=== PATIENT | female | born 1960 | race Asian ===

== ENCOUNTER 2020-04-06 17:32 | Inpatient (IN) | payer MEDICAID, OTHER ==
[~2020-04-06] VITALS: Ht 152.4 cm; Wt 66.8 kg
[2020-04-06] MEDS ORDERED: ONDANSETRON 2MG/ML, 2ML IVPush ONE (18:00)
[2020-04-06] MEDS ORDERED: SODIUM CHLORIDE 0.9% 1,000ML IVBOLUS ONE ×2 (18:00→20:00)
[2020-04-06 18:03] LABS: PH, VENOUS 7.372 pH (7.320-7.420)
[2020-04-06 18:07] LABS: BASOPHILS # (AUTO) 0.02 x10^3/uL (0-0.1); BASOPHILS % (AUTO) 0 % (0-1); EOSINOPHILS % (AUTO) 0 % (1-7); LYMPHOCYTES # (AUTO) 1.24 x10^3/uL (1-3.4); LYMPHOCYTES % (AUTO) 17 % (22-44); MD NO; MEAN CORPUSCULAR HEMOGLOBIN 28.3 pg (27.0-34.8); MEAN CORPUSCULAR HGB CONC 33.6 g/dL (32.4-35.8); MEAN CORPUSCULAR VOLUME 84.2 fL (80-100); MEAN PLATELET VOLUME 9.8 fL (7.4-10.4); MONOCYTES # (AUTO) 0.17 x10^3/uL (0.2-0.8); MONOCYTES % (AUTO) 2 % (2-9); NEUTROPHILS # (AUTO) 6.07 x10^3/uL (1.8-6.8); NEUTROPHILS % (AUTO) 81 % (42-75); PLATELET COUNT 133 x10^3/uL (130-400); RED BLOOD COUNT 5.58 x10^6/uL (3.82-5.3); RED CELL DISTRIBUTION WIDTH 13.1 % (9.6-15.2)
[2020-04-06 18:17] LABS: ALANINE AMINOTRANSFERASE 50 U/L (12-78); ALBUMIN 3.1 g/dL (3.4-5.0); ANION GAP 8 mmol/L (5-15); CALCIUM 8.5 mg/dL (8.5-10.1); CHLORIDE 89 mmol/L (98-107); CREATININE 1.18 mg/dL (0.55-1.02)
[2020-04-06 18:19] LABS: ALKALINE PHOSPHATASE 90 U/L (45-117); BILIRUBIN,TOTAL 0.8 mg/dL (0.2-1.0); TOTAL PROTEIN 8.4 g/dL (6.4-8.2)
[2020-04-06 18:20] LABS: ACETONE, SERUM Moderate(40mg/dL) (Negative)
[2020-04-06] MEDS ORDERED: SODIUM CHLORIDE FLUSH 10ML SYR IVF ONE (18:30)
--- NOTE | 2020-04-06 18:31 | NUR ---
MEDICAL FRONT DESK SPECIALIST: PT TO ROOM VIA WHEELCHAIR FROM JOSE JUAN
--- NOTE | 2020-04-06 18:48 | NUR ---
first contact with pt. Pt has not eaten in a few days and her blood glucose per daughter-law keeps going up. NAusea and vomitting since yesterday. pt's aox4. resps even and unlabored. pt is from [facility] and pt's daughter can translate. pt's daughter at bedside. bp/spo2 monitors in place. call light within reach.
--- NOTE | 2020-04-06 18:54 | NUR ---
RECEIVED BEDSIDE REPORT FROM MIGDALIA LI. PT LAYING IN BED, RESPIRATIONS EVEN AND UNLABORED. DAUGHTER AT BEDSIDE TO TRANSLATE, CONFIRMED WITH PT THAT SHE DOES NOT WANT TO USE TRANSLATION SERVICES. PT ABLE TO TRANSFER SELF TO BEDSIDE COMMODE FOR CLEAN CATCH URINE SAMPLE.
--- NOTE | 2020-04-06 18:55 | NUR ---
report given to rudy irizarry.
[2020-04-06 19:27] LABS: MICROSCOPIC AUTO
--- NOTE | 2020-04-06 20:05 | NUR ---
PT LAYING IN BED, POSITIONED TO COMFORT, EYES CLOSED, RESPIRATIONS EVEN AND UNLABORED. NO SIGNS OF DISTRESS. DAUGHTER REMAINS AT BEDSIDE.
--- NOTE | 2020-04-06 22:17 | NUR ---
PT STATES NO MEDS, INCLUDING NO INSULIN.
--- NOTE | 2020-04-06 22:30 | NUR ---
REPORT GIVEN TO CARMEN ROMERO RN.
[2020-04-06 23:02] VITALS: BP 153/76
[2020-04-06] MEDS: SODIUM CHLORIDE 0.9% 1,000 ML IV SCH (23:35)
[2020-04-06] MEDS: metFORMIN 500 MG TABLET PO SCH (23:35)
[2020-04-07 00:16] VITALS: BP 112/64
[2020-04-07 01:38] VITALS: BP 125/75
[2020-04-07 06:22] LABS: BASOPHILS # (AUTO) 0.01 x10^3/uL (0-0.1); BASOPHILS % (AUTO) 0 % (0-1); EOSINOPHILS # (AUTO) 0.01 x10^3/uL (0-0.4); EOSINOPHILS % (AUTO) 0 % (1-7); LYMPHOCYTES # (AUTO) 1.18 x10^3/uL (1-3.4); LYMPHOCYTES % (AUTO) 24 % (22-44); MD NO; MEAN CORPUSCULAR HEMOGLOBIN 28.3 pg (27.0-34.8); MEAN CORPUSCULAR HGB CONC 33.5 g/dL (32.4-35.8); MEAN CORPUSCULAR VOLUME 84.4 fL (80-100); MEAN PLATELET VOLUME 10.1 fL (7.4-10.4); MONOCYTES # (AUTO) 0.32 x10^3/uL (0.2-0.8); MONOCYTES % (AUTO) 6 % (2-9); NEUTROPHILS % (AUTO) 70 % (42-75); PLATELET COUNT 129 x10^3/uL (130-400); RED BLOOD COUNT 5.11 x10^6/uL (3.82-5.3); RED CELL DISTRIBUTION WIDTH 13.2 % (9.6-15.2)
[2020-04-07 06:30] LABS: ANION GAP 9 mmol/L (5-15); CALCIUM 7.9 mg/dL (8.5-10.1); CHLORIDE 101 mmol/L (98-107)
[2020-04-07 06:41] LABS: CREATININE 0.85 mg/dL (0.55-1.02)
[2020-04-07] MEDS: SODIUM CHLORIDE 0.9% 1,000 ML IV SCH ×3 (07:30→23:49)
[2020-04-07] MEDS: metFORMIN 500 MG TABLET PO SCH ×2 (07:43→16:53)
[2020-04-07] MEDS: INSULIN LISPRO 100 UNITS/ML, PEN SQ-INSULIN SCH ×4 (07:44→20:04)
[2020-04-07 07:58] VITALS: BP 134/70
[2020-04-07 08:21] LABS: ESTIMATED AVERAGE GLUCOSE 355 mg/dL (0-126)
[2020-04-07] MEDS: LINAGLIPTIN 5 MG TAB PO SCH (09:55)
[2020-04-07 12:55] VITALS: BP 113/64
[2020-04-07 19:18] VITALS: BP 118/66
[2020-04-07] MEDS: ONDANSETRON 2MG/ML, 2ML IVPush PRN (20:04)
[2020-04-07] MEDS: INSULIN GLARGINE 100 UNITS/ML, PEN SQ-INSULIN SCH (21:51)
[2020-04-08 01:47] VITALS: BP 110/62
[2020-04-08] MEDS: INSULIN LISPRO 100 UNITS/ML, PEN SQ-INSULIN SCH ×4 (07:00→21:00)
[2020-04-08] MEDS: SODIUM CHLORIDE 0.9% 1,000 ML IV SCH ×3 (07:09→22:41)
[2020-04-08] MEDS: metFORMIN 500 MG TABLET PO SCH ×2 (07:27→17:33)
[2020-04-08] MEDS: LINAGLIPTIN 5 MG TAB PO SCH (07:27)
[2020-04-08 07:36] VITALS: BP 112/51
[2020-04-08 11:11] LABS: MICROSCOPIC AUTO
[2020-04-08 14:00] VITALS: BP 117/66
[2020-04-08 14:00] LABS: HCT (SEDRATE) 40.6 % (34.6-47.8)
[2020-04-08 14:02] LABS: BASOPHILS # (AUTO) 0.03 x10^3/uL (0-0.1); BASOPHILS % (AUTO) 0 % (0-1); EOSINOPHILS # (AUTO) 0.03 x10^3/uL (0-0.4); EOSINOPHILS % (AUTO) 0 % (1-7); LYMPHOCYTES % (AUTO) 33 % (22-44); MD NO; MEAN CORPUSCULAR HEMOGLOBIN 28.6 pg (27.0-34.8); MEAN CORPUSCULAR HGB CONC 34.1 g/dL (32.4-35.8); MEAN CORPUSCULAR VOLUME 83.9 fL (80-100); MEAN PLATELET VOLUME 9.7 fL (7.4-10.4); MONOCYTES # (AUTO) 0.33 x10^3/uL (0.2-0.8); MONOCYTES % (AUTO) 4 % (2-9); NEUTROPHILS # (AUTO) 4.79 x10^3/uL (1.8-6.8); NEUTROPHILS % (AUTO) 62 % (42-75); PLATELET COUNT 148 x10^3/uL (130-400); RED BLOOD COUNT 4.77 x10^6/uL (3.82-5.3); RED CELL DISTRIBUTION WIDTH 13.4 % (9.6-15.2)
[2020-04-08 14:10] LABS: ALBUMIN 2.4 g/dL (3.4-5.0); ANION GAP 7 mmol/L (5-15); CALCIUM 8.2 mg/dL (8.5-10.1); CHLORIDE 102 mmol/L (98-107); CREATININE 0.85 mg/dL (0.55-1.02)
[2020-04-08 14:13] LABS: ALANINE AMINOTRANSFERASE 40 U/L (12-78); ALKALINE PHOSPHATASE 78 U/L (45-117); BILIRUBIN,TOTAL 0.6 mg/dL (0.2-1.0); TOTAL PROTEIN 7.2 g/dL (6.4-8.2)
[2020-04-08 20:21] VITALS: BP 132/71
[2020-04-08] MEDS: INSULIN GLARGINE 100 UNITS/ML, PEN SQ-INSULIN SCH (22:32)
[2020-04-09 02:18] VITALS: BP 115/56
[2020-04-09] MEDS: SODIUM CHLORIDE 0.9% 1,000 ML IV SCH ×2 (06:12→18:28)
[2020-04-09] MEDS: INSULIN LISPRO 100 UNITS/ML, PEN SQ-INSULIN SCH ×4 (06:12→20:22)
[2020-04-09] MEDS: metFORMIN 500 MG TABLET PO SCH (08:15)
[2020-04-09] MEDS: LINAGLIPTIN 5 MG TAB PO SCH (08:15)
[2020-04-09 08:28] VITALS: BP 119/65
[2020-04-09 13:55] VITALS: BP 135/59
[2020-04-09] MEDS ORDERED: metFORMIN 500 MG TABLET PO SCH (17:00)
[2020-04-09 19:24] VITALS: BP 111/66
[2020-04-09] MEDS: ONDANSETRON 2MG/ML, 2ML IVPush PRN (20:45)
[2020-04-09] MEDS ORDERED: INSULIN GLARGINE 100 UNITS/ML, PEN SQ-INSULIN SCH (21:00)
[2020-04-10 00:55] VITALS: BP 118/60
[2020-04-10] MEDS: SODIUM CHLORIDE 0.9% 1,000 ML IV SCH ×2 (01:45→09:33)
[2020-04-10 07:23] VITALS: BP 136/75
[2020-04-10] MEDS: INSULIN LISPRO 100 UNITS/ML, PEN SQ-INSULIN SCH ×4 (07:37→20:38)
[2020-04-10 08:07] LABS: ANION GAP 7 mmol/L (5-15); CALCIUM 7.8 mg/dL (8.5-10.1); CHLORIDE 104 mmol/L (98-107); CREATININE 0.76 mg/dL (0.55-1.02)
[2020-04-10 08:11] VITALS: BP 133/65
[2020-04-10] MEDS ORDERED: AMPICILLIN/SULBACTAM 3 GM in SODIUM CHLORIDE 0.9% 100 ML IV SCH (10:00)
[2020-04-10 10:33] VITALS: BP 121/65
[2020-04-10] MEDS: ACETAMINOPHEN 650 MG SUPP PR PRN ×2 (10:37→20:27)
[2020-04-10 10:47] LABS: ALANINE AMINOTRANSFERASE 45 U/L (12-78); ALBUMIN 1.9 g/dL (3.4-5.0); ANION GAP 9 mmol/L (5-15); CHLORIDE 101 mmol/L (98-107); CREATININE 0.86 mg/dL (0.55-1.02)
[2020-04-10 10:52] LABS: ALKALINE PHOSPHATASE 101 U/L (45-117); BILIRUBIN,TOTAL 0.5 mg/dL (0.2-1.0); TOTAL PROTEIN 6.7 g/dL (6.4-8.2); TROPONIN I 0.016 ng/mL (0.000-0.045)
[2020-04-10 10:55] LABS: BASOPHILS # (AUTO) 0.03 x10^3/uL (0-0.1); BASOPHILS % (AUTO) 0 % (0-1); EOSINOPHILS % (AUTO) 0 % (1-7); LYMPHOCYTES # (AUTO) 0.87 x10^3/uL (1-3.4); LYMPHOCYTES % (AUTO) 12 % (22-44); MD SCAN; MEAN CORPUSCULAR HEMOGLOBIN 28.6 pg (27.0-34.8); MEAN CORPUSCULAR HGB CONC 34.2 g/dL (32.4-35.8); MEAN CORPUSCULAR VOLUME 83.7 fL (80-100); MEAN PLATELET VOLUME 9.2 fL (7.4-10.4); MONOCYTES # (AUTO) 0.28 x10^3/uL (0.2-0.8); MONOCYTES % (AUTO) 4 % (2-9); NEUTROPHILS # (AUTO) 6.27 x10^3/uL (1.8-6.8); NEUTROPHILS % (AUTO) 84 % (42-75); PLATELET COUNT 192 x10^3/uL (130-400); RED BLOOD COUNT 4.54 x10^6/uL (3.82-5.3); RED CELL DISTRIBUTION WIDTH 13.1 % (9.6-15.2)
[2020-04-10] MEDS ORDERED: PROPOFOL 10 MG/ML, 20ML ONE (11:12)
[2020-04-10] MEDS ORDERED: ETOMIDATE 20 MG/10 ML ONE (11:12)
[2020-04-10] MEDS ORDERED: PROPOFOL 10 MG/ML, 100ML IV ONE (11:12)
[2020-04-10] MEDS ORDERED: SUCCINYLCHOLINE 20 MG/ML, 10ML ONE (11:12)
[2020-04-10] MEDS ORDERED: MIDAZOLAM 1 MG/ML, 5ML ONE (11:12)
[2020-04-10 12:37] VITALS: BP 110/61
[2020-04-10] MEDS ORDERED: POTASSIUM CHLORIDE 40 MEQ in SODIUM CHLORIDE 0.9% 500 ML IV ONE (13:30)
[2020-04-10] MEDS ORDERED: FUROSEMIDE 40 MG/4 ML IV ONE (13:30)
[2020-04-10 13:48] LABS: TROPONIN I 0.028 ng/mL (0.000-0.045)
[2020-04-10] MEDS ORDERED: ENOXAPARIN 30 MG/0.3 ML SQ SCH (15:00)
[2020-04-10] MEDS ORDERED: REMDESIVIR 200 MG in SODIUM CHLORIDE 0.9% 250 ML IVPB ONE (15:30)
[2020-04-10] MEDS ORDERED: KETOROLAC 30 MG/1 ML IM PRN (17:00)
[2020-04-10] MEDS: ASCORBIC ACID 500 MG TABLET PO SCH ×2 (17:42→20:27)
[2020-04-10] MEDS: methylPREDNISolone SOD SUCC 40 MG/ML IV SCH (17:48)
[2020-04-10] MEDS: ENOXAPARIN 30 MG/0.3 ML SQ SCH (17:48)
[2020-04-10] MEDS ORDERED: MIDAZOLAM 1 MG/ML, 2ML IVPush ONE (18:00)
[2020-04-10] MEDS ORDERED: PROPOFOL 100 ML IV ONE (18:47)
[2020-04-10] MEDS ORDERED: LINEZOLID PMX 600MG/300ML 300 ML IV SCH (19:00)
[2020-04-10] MEDS: AMPICILLIN/SULBACTAM 3 GM in SODIUM CHLORIDE 0.9% 100 ML IV SCH (19:51)
[2020-04-10] MEDS: AZITHROMYCIN 500 MG in SODIUM CHLORIDE 0.9% 250 ML IV SCH (20:27)
[2020-04-10] MEDS: MELATONIN 5 MG TABLET PO SCH (20:27)
[2020-04-10] MEDS ORDERED: PIPERACILLIN/TAZO/PMX 3.375GM 50 ML IV SCH (21:00)
[2020-04-10] MEDS: TOCILIZUMAB 600 MG in SODIUM CHLORIDE 0.9% 70 ML IVPB SCH (21:56)
[2020-04-11] MEDS: ACETAMINOPHEN 650 MG SUPP PR PRN (00:28)
[2020-04-11] MEDS: AMPICILLIN/SULBACTAM 3 GM in SODIUM CHLORIDE 0.9% 100 ML IV SCH ×3 (02:09→17:43)
[2020-04-11] MEDS ORDERED: SODIUM CHLORIDE 0.9%, 500ML IVBOLUS ONE (02:30)
[2020-04-11] MEDS: methylPREDNISolone SOD SUCC 40 MG/ML IV SCH ×2 (03:09→16:38)
[2020-04-11] MEDS: PROPOFOL 100 ML IV PRN ×3 (03:10→20:03)
[2020-04-11] MEDS: INSULIN LISPRO 100 UNITS/ML, PEN SQ-INSULIN SCH ×6 (03:10→21:17)
[2020-04-11 05:44] LABS: BASOPHILS # (AUTO) 0.02 x10^3/uL (0-0.1); BASOPHILS % (AUTO) 0 % (0-1); EOSINOPHILS % (AUTO) 0 % (1-7); LYMPHOCYTES # (AUTO) 0.69 x10^3/uL (1-3.4); LYMPHOCYTES % (AUTO) 11 % (22-44); MD NO; MEAN CORPUSCULAR HEMOGLOBIN 28.2 pg (27.0-34.8); MEAN CORPUSCULAR HGB CONC 33.4 g/dL (32.4-35.8); MEAN CORPUSCULAR VOLUME 84.5 fL (80-100); MEAN PLATELET VOLUME 9.4 fL (7.4-10.4); MONOCYTES # (AUTO) 0.05 x10^3/uL (0.2-0.8); MONOCYTES % (AUTO) 1 % (2-9); NEUTROPHILS # (AUTO) 5.49 x10^3/uL (1.8-6.8); NEUTROPHILS % (AUTO) 88 % (42-75); PLATELET COUNT 186 x10^3/uL (130-400); RED BLOOD COUNT 4.33 x10^6/uL (3.82-5.3); RED CELL DISTRIBUTION WIDTH 13.2 % (9.6-15.2)
[2020-04-11 05:50] LABS: INTERNATIONAL NORMALIZED RATIO 1.09 (0.93-1.1); PROTHROMBIN TIME 11.6 Seconds (9.6-11.5)
[2020-04-11 05:52] LABS: ALANINE AMINOTRANSFERASE 49 U/L (12-78); ALBUMIN 1.5 g/dL (3.4-5.0); ANION GAP 10 mmol/L (5-15); CALCIUM 7.1 mg/dL (8.5-10.1); CHLORIDE 105 mmol/L (98-107); CREATININE 1.57 mg/dL (0.55-1.02)
[2020-04-11 05:57] LABS: ALKALINE PHOSPHATASE 92 U/L (45-117); TOTAL PROTEIN 6.1 g/dL (6.4-8.2); TROPONIN I 0.019 ng/mL (0.000-0.045)
[2020-04-11] MEDS ORDERED: MAGNESIUM SULFATE PMX 2GM/50ML 50 ML IV ONE ×2 (06:30→07:00)
[2020-04-11] MEDS ORDERED: ALBUMIN HUMAN 25% 100 ML IV ONE ×2 (07:00)
[2020-04-11] MEDS ORDERED: LACTATED RINGERS 1,000 ML IVBOLUS ONE (08:00)
[2020-04-11] MEDS ORDERED: CHOLECALCIFEROL 5,000u TAB PO SCH (09:00)
[2020-04-11] MEDS ORDERED: AZITHROMYCIN 500 MG TABLET PO SCH (09:00)
[2020-04-11] MEDS: ENOXAPARIN 30 MG/0.3 ML SQ SCH (09:14)
[2020-04-11] MEDS: ZINC SULFATE 220 MG CAPSULE PO SCH (09:15)
[2020-04-11] MEDS: ASCORBIC ACID 500 MG TABLET PO SCH ×3 (09:15→20:04)
[2020-04-11] MEDS: MIDODRINE 5 MG TABLET PO SCH ×3 (09:15→20:03)
[2020-04-11] MEDS: INSULIN GLARGINE 100 UNITS/ML, PEN SQ-INSULIN SCH ×2 (09:27→21:18)
[2020-04-11] MEDS: TOCILIZUMAB 600 MG in SODIUM CHLORIDE 0.9% 70 ML IVPB SCH (10:04)
[2020-04-11 10:25] LABS: ANION GAP 9 mmol/L (5-15); CALCIUM 7.7 mg/dL (8.5-10.1); CHLORIDE 106 mmol/L (98-107); CREATININE 1.69 mg/dL (0.55-1.02)
--- NOTE | 2020-04-11 10:55 | NUR ---
TF Recommendations: promote ON propofol: 65 ml/hr OFF propofol: 70 ml/hr
[2020-04-11 13:40] LABS: MICROSCOPIC INDICATED
[2020-04-11] MEDS ORDERED: PROPOFOL 100 ML IV PRN (14:48)
[2020-04-11] MEDS ORDERED: NOREPINEPHRINE 8 MG in SODIUM CHLORIDE 0.9% 242 ML IV PRN (14:48)
[2020-04-11] MEDS ORDERED: LIDOCAINE-MPF 1%, 2ML ENDO PRN (15:00)
[2020-04-11] MEDS ORDERED: SENNA 176 MG/5 ML ORAL SOL NG PRN (15:00)
[2020-04-11] MEDS ORDERED: DEXTROSE 4 GM TAB.CHEW PO PRN (15:00)
[2020-04-11] MEDS ORDERED: FENTANYL PF 100 MCG/2ML IVPush PRN (15:00)
[2020-04-11] MEDS ORDERED: GLUCAGON 1 MG IM PRN (15:00)
[2020-04-11] MEDS ORDERED: PHARMACY MAY ADJ FOR RENAL FX MC SCH (15:00)
[2020-04-11] MEDS ORDERED: DEXTROSE 50%, 50ML SYRINGE IVPush PRN (15:00)
[2020-04-11] MEDS ORDERED: REMDESIVIR 100 MG in SODIUM CHLORIDE 0.9% 250 ML IVPB SCH ×2 (15:30→19:30)
[2020-04-11] MEDS: AZITHROMYCIN 500 MG in SODIUM CHLORIDE 0.9% 250 ML IV SCH (17:43)
[2020-04-11] MEDS: SODIUM CHLORIDE FLUSH 10ML SYR IVF SCH (20:04)
[2020-04-11] MEDS: MELATONIN 5 MG TABLET PO SCH (20:04)
[2020-04-11] MEDS ORDERED: ENOXAPARIN 60 MG/0.6 ML SQ SCH (21:00)
[2020-04-11] MEDS ORDERED: AMPICILLIN/SULBACTAM 3 GM in SODIUM CHLORIDE 0.9% 100 ML IV SCH (22:00)
[2020-04-12] MEDS ORDERED: PROPOFOL 10 MG/ML, 100ML IV ONE
[2020-04-12] MEDS ORDERED: ETOMIDATE 40 MG/20 ML ONE
[2020-04-12] MEDS ORDERED: SUCCINYLCHOLINE 20 MG/ML, 10ML ONE
[2020-04-12] MEDS ORDERED: MIDAZOLAM 1 MG/ML, 5ML ONE
[2020-04-12] MEDS: FENTANYL PF 100 MCG/2ML IVPush PRN ×4 (00:18→22:14)
[2020-04-12] MEDS: PROPOFOL 100 ML IV PRN ×4 (00:43→21:15)
[2020-04-12] MEDS: methylPREDNISolone SOD SUCC 40 MG/ML IV SCH ×2 (03:17→17:24)
[2020-04-12] MEDS: AMPICILLIN/SULBACTAM 3 GM in SODIUM CHLORIDE 0.9% 100 ML IV SCH ×3 (03:17→17:25)
[2020-04-12] MEDS: INSULIN LISPRO 100 UNITS/ML, PEN SQ-INSULIN SCH ×9 (03:18→21:01)
[2020-04-12 05:21] LABS: BASOPHILS % (AUTO) 0 % (0-1); EOSINOPHILS % (AUTO) 0 % (1-7); LYMPHOCYTES # (AUTO) 0.75 x10^3/uL (1-3.4); LYMPHOCYTES % (AUTO) 10 % (22-44); MD NO; MEAN CORPUSCULAR HEMOGLOBIN 28.2 pg (27.0-34.8); MEAN CORPUSCULAR HGB CONC 32.8 g/dL (32.4-35.8); MEAN CORPUSCULAR VOLUME 85.8 fL (80-100); MEAN PLATELET VOLUME 9.7 fL (7.4-10.4); MONOCYTES # (AUTO) 0.02 x10^3/uL (0.2-0.8); MONOCYTES % (AUTO) 0 % (2-9); NEUTROPHILS # (AUTO) 6.63 x10^3/uL (1.8-6.8); NEUTROPHILS % (AUTO) 90 % (42-75); PLATELET COUNT 258 x10^3/uL (130-400); RED BLOOD COUNT 4.03 x10^6/uL (3.82-5.3); RED CELL DISTRIBUTION WIDTH 13.7 % (9.6-15.2)
[2020-04-12 05:23] LABS: INTERNATIONAL NORMALIZED RATIO 1.07 (0.93-1.1); PROTHROMBIN TIME 11.4 Seconds (9.6-11.5)
[2020-04-12 05:29] LABS: CHLORIDE 108 mmol/L (98-107)
[2020-04-12] MEDS ORDERED: FUROSEMIDE 40 MG/4 ML IV ONE (05:30)
[2020-04-12 05:35] LABS: ALANINE AMINOTRANSFERASE 50 U/L (12-78); ALBUMIN 2.3 g/dL (3.4-5.0); ALKALINE PHOSPHATASE 90 U/L (45-117); ANION GAP 8 mmol/L (5-15); BILIRUBIN,TOTAL 0.6 mg/dL (0.2-1.0); CREATININE 1.61 mg/dL (0.55-1.02); TOTAL PROTEIN 6.5 g/dL (6.4-8.2)
[2020-04-12] MEDS: CHOLECALCIFEROL 1,000 UNIT TABLET PO SCH (08:33)
[2020-04-12] MEDS: SODIUM CHLORIDE FLUSH 10ML SYR IVF SCH ×2 (08:33→21:00)
[2020-04-12] MEDS: ASCORBIC ACID 500 MG TABLET PO SCH ×3 (08:34→20:59)
[2020-04-12] MEDS: MIDODRINE 5 MG TABLET PO SCH ×2 (08:34→17:25)
[2020-04-12] MEDS: ENOXAPARIN 60 MG/0.6 ML SQ SCH (08:34)
[2020-04-12] MEDS: ZINC SULFATE 220 MG CAPSULE PO SCH (08:34)
[2020-04-12 08:43] LABS: ANION GAP 8 mmol/L (5-15); CHLORIDE 107 mmol/L (98-107); CREATININE 1.68 mg/dL (0.55-1.02)
[2020-04-12] MEDS: INSULIN GLARGINE 100 UNITS/ML, PEN SQ-INSULIN SCH ×2 (08:56→21:00)
[2020-04-12] MEDS: FAMOTIDINE 20 MG/2 ML IVPush SCH (11:24)
[2020-04-12] MEDS ORDERED: INSULIN LISPRO 100 UNITS/ML, PEN SQ-INSULIN SCH (15:00)
[2020-04-12] MEDS: MELATONIN 5 MG TABLET PO SCH (20:59)
[2020-04-12] MEDS: MIDAZOLAM 1 MG/ML, 2ML IV PRN ×2 (21:01→22:14)
[2020-04-12] MEDS: REMDESIVIR 100 MG in SODIUM CHLORIDE 0.9% 250 ML IVPB SCH (21:02)
[2020-04-12] MEDS: AZITHROMYCIN 500 MG in SODIUM CHLORIDE 0.9% 250 ML IV SCH (22:14)
[2020-04-12] MEDS: MIDAZOLAM HCL 50 MG in SODIUM CHLORIDE 0.9% 40 ML IV PRN (23:49)
[2020-04-13] MEDS: MIDODRINE 5 MG TABLET PO SCH ×3 (01:41→16:04)
[2020-04-13] MEDS: AMPICILLIN/SULBACTAM 3 GM in SODIUM CHLORIDE 0.9% 100 ML IV SCH ×3 (01:42→18:07)
[2020-04-13] MEDS: PROPOFOL 100 ML IV PRN ×2 (02:49→07:50)
[2020-04-13] MEDS: MIDAZOLAM HCL 50 MG in SODIUM CHLORIDE 0.9% 40 ML IV PRN ×3 (02:49→18:07)
[2020-04-13] MEDS: methylPREDNISolone SOD SUCC 40 MG/ML IV SCH ×2 (03:30→16:04)
[2020-04-13] MEDS: INSULIN LISPRO 100 UNITS/ML, PEN SQ-INSULIN SCH ×8 (03:30→21:04)
[2020-04-13 03:58] LABS: ALANINE AMINOTRANSFERASE 46 U/L (12-78); ALBUMIN 2.1 g/dL (3.4-5.0); ANION GAP 5 mmol/L (5-15); BASOPHILS # (AUTO) 0.02 x10^3/uL (0-0.1); BASOPHILS % (AUTO) 0 % (0-1); CALCIUM 8.1 mg/dL (8.5-10.1); CHLORIDE 108 mmol/L (98-107); CREATININE 1.69 mg/dL (0.55-1.02); EOSINOPHILS # (AUTO) 0.05 x10^3/uL (0-0.4); EOSINOPHILS % (AUTO) 1 % (1-7); LYMPHOCYTES # (AUTO) 0.39 x10^3/uL (1-3.4); LYMPHOCYTES % (AUTO) 4 % (22-44); MD NO; MEAN CORPUSCULAR HEMOGLOBIN 28.4 pg (27.0-34.8); MEAN CORPUSCULAR HGB CONC 33.3 g/dL (32.4-35.8); MEAN CORPUSCULAR VOLUME 85.4 fL (80-100); MEAN PLATELET VOLUME 9.7 fL (7.4-10.4); MONOCYTES # (AUTO) 0.28 x10^3/uL (0.2-0.8); MONOCYTES % (AUTO) 3 % (2-9); NEUTROPHILS # (AUTO) 9.64 x10^3/uL (1.8-6.8); NEUTROPHILS % (AUTO) 93 % (42-75); PLATELET COUNT 344 x10^3/uL (130-400); RED BLOOD COUNT 4.23 x10^6/uL (3.82-5.3); RED CELL DISTRIBUTION WIDTH 14.2 % (9.6-15.2)
[2020-04-13 04:05] LABS: ALKALINE PHOSPHATASE 94 U/L (45-117); BILIRUBIN,TOTAL 0.4 mg/dL (0.2-1.0); TOTAL PROTEIN 6.5 g/dL (6.4-8.2)
[2020-04-13] MEDS: CHOLECALCIFEROL 1,000 UNIT TABLET PO SCH (07:50)
[2020-04-13] MEDS: ZINC SULFATE 220 MG CAPSULE PO SCH (07:50)
[2020-04-13] MEDS: SODIUM CHLORIDE FLUSH 10ML SYR IVF SCH ×2 (07:50→21:01)
[2020-04-13] MEDS: ASCORBIC ACID 500 MG TABLET PO SCH ×2 (07:50→16:04)
[2020-04-13] MEDS: FAMOTIDINE 20 MG/2 ML IVPush SCH (07:50)
[2020-04-13] MEDS: ENOXAPARIN 60 MG/0.6 ML SQ SCH (07:51)
[2020-04-13 08:49] LABS: ANION GAP 7 mmol/L (5-15); CALCIUM 8.5 mg/dL (8.5-10.1); CHLORIDE 108 mmol/L (98-107)
[2020-04-13] MEDS ORDERED: INSULIN GLARGINE 100 UNITS/ML, PEN SQ-INSULIN SCH ×3 (09:00→21:00)
[2020-04-13] MEDS: VECURONIUM 50 MG in SODIUM CHLORIDE 0.9% 50 ML IV PRN ×2 (10:01→18:24)
[2020-04-13] MEDS: ALBUTEROL/IPRATROPIUM 2.5MG/0.5MG, 3 ML INLINE SCH ×6 (12:20→23:00)
[2020-04-13] MEDS ORDERED: ALBUTEROL/IPRATROPIUM 2.5MG/0.5MG, 3 ML ONE (12:34)
[2020-04-13] MEDS ORDERED: FUROSEMIDE 20 MG/2 ML IV ONE (13:00)
[2020-04-13 14:41] VITALS: BP 105/46
[2020-04-13 14:56] VITALS: BP 106/46
[2020-04-13 15:02] VITALS: BP 105/46
[2020-04-13] MEDS ORDERED: SODIUM BICARB 8.4%, 50ML SYRINGE ONE (15:25)
[2020-04-13] MEDS ORDERED: SODIUM BICARBONATE 1 MEQ/ML, 50ML VIAL IVPush ONE (15:30)
[2020-04-13 15:36] VITALS: BP 114/49
[2020-04-13] MEDS ORDERED: SODIUM BICARB 8.4%, 50ML SYRINGE IVPush ONE (16:00)
[2020-04-13 16:36] VITALS: BP 120/52
[2020-04-13] MEDS: MELATONIN 5 MG TABLET PO SCH (20:17)
[2020-04-13] MEDS: REMDESIVIR 100 MG in SODIUM CHLORIDE 0.9% 250 ML IVPB SCH (20:32)
[2020-04-13] MEDS: ARTIFICIAL TEARS OINT 3.5 GM EACHEYE SCH (21:01)
[2020-04-13] MEDS: SODIUM CHLORIDE 0.9% IVPB SCH (23:04)
[2020-04-13] MEDS: ASCORBATE SODIUM IVPB SCH (23:04)
[2020-04-14] MEDS: AZITHROMYCIN 500 MG in SODIUM CHLORIDE 0.9% 250 ML IV SCH (00:36)
[2020-04-14] MEDS: MIDODRINE 5 MG TABLET PO SCH ×2 (00:36→08:55)
[2020-04-14] MEDS: PROPOFOL 100 ML IV PRN (00:36)
[2020-04-14] MEDS: ALBUTEROL/IPRATROPIUM 2.5MG/0.5MG, 3 ML INLINE SCH ×10 (01:00→22:30)
[2020-04-14] MEDS: ARTIFICIAL TEARS OINT 3.5 GM EACHEYE SCH ×4 (03:07→20:06)
[2020-04-14] MEDS: AMPICILLIN/SULBACTAM 3 GM in SODIUM CHLORIDE 0.9% 100 ML IV SCH ×3 (03:07→17:09)
[2020-04-14 03:55] LABS: ALANINE AMINOTRANSFERASE 41 U/L (12-78); ANION GAP 8 mmol/L (5-15); CALCIUM 7.7 mg/dL (8.5-10.1); CHLORIDE 112 mmol/L (98-107); CREATININE 1.66 mg/dL (0.55-1.02); TRIGLYCERIDES 401 mg/dL (50-200)
[2020-04-14 04:03] LABS: ALKALINE PHOSPHATASE 84 U/L (45-117); BILIRUBIN,TOTAL 0.4 mg/dL (0.2-1.0); TOTAL PROTEIN 5.8 g/dL (6.4-8.2)
[2020-04-14 04:07] LABS: BASOPHILS # (AUTO) 0.06 x10^3/uL (0-0.1); BASOPHILS % (AUTO) 1 % (0-1); EOSINOPHILS % (AUTO) 0 % (1-7); LYMPHOCYTES # (AUTO) 0.54 x10^3/uL (1-3.4); LYMPHOCYTES % (AUTO) 7 % (22-44); MD SCAN; MEAN CORPUSCULAR HEMOGLOBIN 27.7 pg (27.0-34.8); MEAN CORPUSCULAR HGB CONC 31.7 g/dL (32.4-35.8); MEAN CORPUSCULAR VOLUME 87.3 fL (80-100); MEAN PLATELET VOLUME 8.7 fL (7.4-10.4); MONOCYTES # (AUTO) 0.57 x10^3/uL (0.2-0.8); MONOCYTES % (AUTO) 7 % (2-9); NEUTROPHILS # (AUTO) 6.95 x10^3/uL (1.8-6.8); NEUTROPHILS % (AUTO) 86 % (42-75); PLATELET COUNT 297 x10^3/uL (130-400); RED BLOOD COUNT 4.31 x10^6/uL (3.82-5.3); RED CELL DISTRIBUTION WIDTH 14.3 % (9.6-15.2)
[2020-04-14] MEDS: methylPREDNISolone SOD SUCC 40 MG/ML IV SCH ×2 (04:35→17:09)
[2020-04-14] MEDS: INSULIN LISPRO 100 UNITS/ML, PEN SQ-INSULIN SCH ×5 (04:36→20:10)
[2020-04-14] MEDS: ASCORBATE SODIUM IVPB SCH ×3 (06:03→20:06)
[2020-04-14] MEDS: SODIUM CHLORIDE 0.9% IVPB SCH ×3 (06:03→20:06)
[2020-04-14] MEDS ORDERED: POTASSIUM CHLORIDE 20 MEQ in SODIUM CHLORIDE 0.9% 250 ML IV ONE (06:30)
[2020-04-14] MEDS: CHOLECALCIFEROL 1,000 UNIT TABLET PO SCH (08:55)
[2020-04-14] MEDS: ENOXAPARIN 60 MG/0.6 ML SQ SCH (08:55)
[2020-04-14] MEDS: ZINC SULFATE 220 MG CAPSULE PO SCH (08:55)
[2020-04-14] MEDS: FAMOTIDINE 20 MG/2 ML IVPush SCH (08:55)
[2020-04-14] MEDS: SODIUM CHLORIDE FLUSH 10ML SYR IVF SCH ×2 (08:57→20:06)
[2020-04-14 10:00] LABS: ANION GAP 6 mmol/L (5-15); CALCIUM 8.4 mg/dL (8.5-10.1); CHLORIDE 112 mmol/L (98-107)
[2020-04-14] MEDS: MIDAZOLAM HCL 50 MG in SODIUM CHLORIDE 0.9% 40 ML IV PRN ×3 (10:20→23:59)
[2020-04-14] MEDS: FENTANYL PF 1,000 MCG in SODIUM CHLORIDE 0.9% 80 ML IV PRN ×2 (11:00→21:44)
[2020-04-14 16:23] LABS: ANION GAP 5 mmol/L (5-15); CALCIUM 8.1 mg/dL (8.5-10.1); CHLORIDE 113 mmol/L (98-107); CREATININE 1.52 mg/dL (0.55-1.02)
[2020-04-14] MEDS ORDERED: FUROSEMIDE 20 MG/2 ML IV ONE (19:30)
[2020-04-14] MEDS: REMDESIVIR 100 MG in SODIUM CHLORIDE 0.9% 250 ML IVPB SCH (21:44)
[2020-04-15] MEDS: AZITHROMYCIN 500 MG in SODIUM CHLORIDE 0.9% 250 ML IV SCH (00:03)
[2020-04-15] MEDS: ARTIFICIAL TEARS OINT 3.5 GM EACHEYE SCH ×2 (02:04→08:00)
[2020-04-15] MEDS: AMPICILLIN/SULBACTAM 3 GM in SODIUM CHLORIDE 0.9% 100 ML IV SCH ×3 (02:05→17:28)
[2020-04-15] MEDS: ALBUTEROL/IPRATROPIUM 2.5MG/0.5MG, 3 ML INLINE SCH ×6 (02:35→22:45)
[2020-04-15] MEDS: SODIUM CHLORIDE 0.9% IVPB SCH ×3 (04:18→22:07)
[2020-04-15] MEDS: methylPREDNISolone SOD SUCC 40 MG/ML IV SCH ×2 (04:18→17:25)
[2020-04-15] MEDS: ASCORBATE SODIUM IVPB SCH ×3 (04:18→22:07)
[2020-04-15] MEDS: MIDAZOLAM HCL 50 MG in SODIUM CHLORIDE 0.9% 40 ML IV PRN ×3 (04:19→22:08)
[2020-04-15] MEDS: INSULIN LISPRO 100 UNITS/ML, PEN SQ-INSULIN SCH ×7 (04:22→22:13)
[2020-04-15 04:41] LABS: MEAN CORPUSCULAR HEMOGLOBIN 27.9 pg (27.0-34.8); MEAN CORPUSCULAR HGB CONC 32.3 g/dL (32.4-35.8); MEAN CORPUSCULAR VOLUME 86.3 fL (80-100); MEAN PLATELET VOLUME 8.6 fL (7.4-10.4); PLATELET COUNT 297 x10^3/uL (130-400); RED CELL DISTRIBUTION WIDTH 13.9 % (9.6-15.2)
[2020-04-15 04:45] LABS: ANION GAP 7 mmol/L (5-15); CALCIUM 7.9 mg/dL (8.5-10.1); CHLORIDE 112 mmol/L (98-107); CREATININE 1.49 mg/dL (0.55-1.02)
[2020-04-15 05:44] LABS: MD YES
[2020-04-15 05:46] LABS: LYMPH#(MANUAL) 0.58 x10^3/uL (1-3.4); LYMPHS% (MANUAL) 11 % (22-44); MONOS#(MANUAL) 0.05 x10^3/uL (0.3-2.7); MONOS% (MANUAL) 1 % (2-9); NRBC % (MANUAL) 1 % (0-1); POLYCHROMASIA 1+; SEG#(MANUAL) 4.66 x10^3/uL (1.8-6.8); SEGS% (MANUAL) 88 % (42-75)
[2020-04-15 05:47] LABS: <PLATELET ESTIMATE> ADEQUATE; <PLT MORPHOLOGY> NORMAL PLT MORPH
[2020-04-15] MEDS ORDERED: DEXTROSE 5% 1,000 ML IV SCH (07:00)
[2020-04-15] MEDS: FAMOTIDINE 20 MG/2 ML IVPush SCH (08:30)
[2020-04-15] MEDS: SODIUM CHLORIDE FLUSH 10ML SYR IVF SCH ×2 (08:30→22:06)
[2020-04-15] MEDS: ENOXAPARIN 60 MG/0.6 ML SQ SCH ×2 (08:30→22:08)
[2020-04-15] MEDS ORDERED: INSULIN GLARGINE 100 UNITS/ML, PEN SQ-INSULIN SCH (09:00)
[2020-04-15] MEDS: INSULIN GLARGINE 100 UNITS/ML, PEN SQ-INSULIN SCH ×2 (09:00→22:11)
[2020-04-15 10:00] LABS: CHLORIDE 113 mmol/L (98-107)
[2020-04-15 10:07] LABS: ANION GAP 7 mmol/L (5-15); CREATININE 1.54 mg/dL (0.55-1.02)
[2020-04-15] MEDS: CHOLECALCIFEROL 1,000 UNIT TABLET PO SCH (11:00)
[2020-04-15] MEDS: ZINC SULFATE 220 MG CAPSULE PO SCH (11:00)
--- NOTE | 2020-04-15 11:51 | NUR ---
04/15-TF GOAL: w/ propofol: Promote @ 50ml/hr off propofol: Promote @ 55ml/hr
[2020-04-15] MEDS ORDERED: FUROSEMIDE 40 MG/4 ML IV ONE (15:30)
[2020-04-15] MEDS ORDERED: REMDESIVIR 100 MG in SODIUM CHLORIDE 0.9% 250 ML IVPB SCH (21:00)
[2020-04-15] MEDS: MELATONIN 5 MG TABLET PO SCH (22:07)
[2020-04-15] MEDS: FENTANYL PF 1,000 MCG in SODIUM CHLORIDE 0.9% 80 ML IV PRN (22:09)
[2020-04-16] MEDS: AMPICILLIN/SULBACTAM 3 GM in SODIUM CHLORIDE 0.9% 100 ML IV SCH ×3 (02:05→16:37)
[2020-04-16] MEDS: AZITHROMYCIN 500 MG in SODIUM CHLORIDE 0.9% 250 ML IV SCH (02:05)
[2020-04-16] MEDS: ALBUTEROL/IPRATROPIUM 2.5MG/0.5MG, 3 ML INLINE SCH ×6 (02:30→22:50)
[2020-04-16] MEDS: MIDAZOLAM HCL 50 MG in SODIUM CHLORIDE 0.9% 40 ML IV PRN ×3 (04:46→23:26)
[2020-04-16] MEDS: ASCORBATE SODIUM IVPB SCH ×3 (04:46→20:51)
[2020-04-16] MEDS: SODIUM CHLORIDE 0.9% IVPB SCH ×3 (04:46→20:51)
[2020-04-16 04:57] LABS: MEAN CORPUSCULAR HEMOGLOBIN 27.8 pg (27.0-34.8); MEAN CORPUSCULAR HGB CONC 31.8 g/dL (32.4-35.8); MEAN CORPUSCULAR VOLUME 87.3 fL (80-100); MEAN PLATELET VOLUME 8.4 fL (7.4-10.4); PLATELET COUNT 281 x10^3/uL (130-400); RED BLOOD COUNT 4.24 x10^6/uL (3.82-5.3)
[2020-04-16 05:07] LABS: ANION GAP 5 mmol/L (5-15); CHLORIDE 112 mmol/L (98-107)
[2020-04-16 05:14] LABS: CREATININE 1.28 mg/dL (0.55-1.02)
[2020-04-16] MEDS: methylPREDNISolone SOD SUCC 40 MG/ML IV SCH ×2 (05:27→16:36)
[2020-04-16] MEDS: INSULIN LISPRO 100 UNITS/ML, PEN SQ-INSULIN SCH ×8 (05:28→22:23)
[2020-04-16 05:49] LABS: MD YES
[2020-04-16 05:51] LABS: LYMPH#(MANUAL) 0.26 x10^3/uL (1-3.4); LYMPHS% (MANUAL) 5 % (22-44); METAMYELOCYTES# (MANUAL) 0.05 x10^3/uL (0-0); METAMYELOCYTES% (MANUAL) 1 % (0-1); MONOS#(MANUAL) 0.05 x10^3/uL (0.3-2.7); MONOS% (MANUAL) 1 % (2-9); MYELOCYTES# (MANUAL) 0.05 x10^3/uL (0-0); MYELOCYTES% (MANUAL) 1 % (0-0); NRBC % (MANUAL) 3 % (0-1); POLYCHROMASIA 1+; SEG#(MANUAL) 4.78 x10^3/uL (1.8-6.8); SEGS% (MANUAL) 92 % (42-75)
[2020-04-16 05:52] LABS: <PLATELET ESTIMATE> ADEQUATE; <PLT MORPHOLOGY> NORMAL PLT MORPH
[2020-04-16] MEDS ORDERED: POTASSIUM CHLORIDE 10% 20 MEQ/15 ML UDC PO ONE (07:00)
[2020-04-16] MEDS ORDERED: DEXTROSE 50%, 50ML SYRINGE IVPush ONE (08:00)
[2020-04-16] MEDS ORDERED: INSULIN REGULAR 100 UNITS/ML, 3ML VIAL IVPush ONE (08:00)
[2020-04-16] MEDS: CHOLECALCIFEROL 1,000 UNIT TABLET PO SCH (08:38)
[2020-04-16] MEDS: ZINC SULFATE 220 MG CAPSULE PO SCH (08:38)
[2020-04-16] MEDS: FAMOTIDINE 20 MG/2 ML IVPush SCH (08:39)
[2020-04-16] MEDS: SODIUM CHLORIDE FLUSH 10ML SYR IVF SCH ×2 (08:39→20:51)
[2020-04-16] MEDS: ENOXAPARIN 60 MG/0.6 ML SQ SCH ×2 (08:39→20:52)
[2020-04-16] MEDS: INSULIN GLARGINE 100 UNITS/ML, PEN SQ-INSULIN SCH ×2 (08:39→20:55)
[2020-04-16] MEDS: FENTANYL PF 1,000 MCG in SODIUM CHLORIDE 0.9% 80 ML IV PRN (11:17)
[2020-04-16] MEDS: MELATONIN 5 MG TABLET PO SCH (20:52)
[2020-04-17] MEDS: AZITHROMYCIN 500 MG in SODIUM CHLORIDE 0.9% 250 ML IV SCH (00:59)
[2020-04-17] MEDS: FENTANYL PF 1,000 MCG in SODIUM CHLORIDE 0.9% 80 ML IV PRN ×2 (01:57→12:15)
[2020-04-17] MEDS: AMPICILLIN/SULBACTAM 3 GM in SODIUM CHLORIDE 0.9% 100 ML IV SCH ×3 (01:57→17:52)
[2020-04-17] MEDS: ALBUTEROL/IPRATROPIUM 2.5MG/0.5MG, 3 ML INLINE SCH ×6 (02:42→22:25)
[2020-04-17] MEDS: ASCORBATE SODIUM IVPB SCH ×3 (04:44→22:09)
[2020-04-17] MEDS: SODIUM CHLORIDE 0.9% IVPB SCH ×3 (04:44→22:09)
[2020-04-17] MEDS: methylPREDNISolone SOD SUCC 40 MG/ML IV SCH ×2 (04:44→17:53)
[2020-04-17] MEDS: INSULIN LISPRO 100 UNITS/ML, PEN SQ-INSULIN SCH ×8 (05:04→22:13)
[2020-04-17] MEDS: MIDAZOLAM HCL 50 MG in SODIUM CHLORIDE 0.9% 40 ML IV PRN ×3 (05:06→23:03)
[2020-04-17 06:58] LABS: ANION GAP 5 mmol/L (5-15); CALCIUM 8.2 mg/dL (8.5-10.1); CHLORIDE 114 mmol/L (98-107); CREATININE 1.06 mg/dL (0.55-1.02); TRIGLYCERIDES 254 mg/dL (50-200)
[2020-04-17 07:03] LABS: C-REACTIVE PROTEIN, QUANT 1.3 mg/dL (0.02-0.49)
[2020-04-17 07:15] LABS: MD YES; MEAN CORPUSCULAR HEMOGLOBIN 27.9 pg (27.0-34.8); MEAN CORPUSCULAR HGB CONC 31.6 g/dL (32.4-35.8); MEAN CORPUSCULAR VOLUME 88.3 fL (80-100); MEAN PLATELET VOLUME 8.7 fL (7.4-10.4); PLATELET COUNT 269 x10^3/uL (130-400); RED BLOOD COUNT 4.06 x10^6/uL (3.82-5.3); RED CELL DISTRIBUTION WIDTH 14.4 % (9.6-15.2)
[2020-04-17 07:19] LABS: <PLATELET ESTIMATE> ADEQUATE; <PLT MORPHOLOGY> NORMAL PLT MORPH; LYMPH#(MANUAL) 0.57 x10^3/uL (1-3.4); LYMPHS% (MANUAL) 15 % (22-44); MONOS#(MANUAL) 0.11 x10^3/uL (0.3-2.7); MONOS% (MANUAL) 3 % (2-9); POLYCHROMASIA 1+; SEG#(MANUAL) 3.12 x10^3/uL (1.8-6.8); SEGS% (MANUAL) 82 % (42-75)
[2020-04-17] MEDS: ENOXAPARIN 60 MG/0.6 ML SQ SCH ×2 (08:53→22:09)
[2020-04-17] MEDS: CHOLECALCIFEROL 1,000 UNIT TABLET PO SCH (08:53)
[2020-04-17] MEDS: ZINC SULFATE 220 MG CAPSULE PO SCH (08:53)
[2020-04-17] MEDS: FAMOTIDINE 20 MG/2 ML IVPush SCH (08:54)
[2020-04-17] MEDS: SODIUM CHLORIDE FLUSH 10ML SYR IVF SCH ×2 (08:54→22:09)
[2020-04-17] MEDS ORDERED: FUROSEMIDE 40 MG/4 ML ONE (08:55)
[2020-04-17] MEDS ORDERED: FUROSEMIDE 40 MG/4 ML IV ONE (09:00)
[2020-04-17] MEDS: INSULIN GLARGINE 100 UNITS/ML, PEN SQ-INSULIN SCH ×2 (11:00→22:12)
[2020-04-17] MEDS: MELATONIN 5 MG TABLET PO SCH (22:09)
[2020-04-18] MEDS: AZITHROMYCIN 500 MG in SODIUM CHLORIDE 0.9% 250 ML IV SCH (00:39)
[2020-04-18] MEDS: ALBUTEROL/IPRATROPIUM 2.5MG/0.5MG, 3 ML INLINE SCH ×6 (01:50→22:15)
[2020-04-18] MEDS: FENTANYL PF 1,000 MCG in SODIUM CHLORIDE 0.9% 80 ML IV PRN ×2 (02:13→20:34)
[2020-04-18] MEDS: AMPICILLIN/SULBACTAM 3 GM in SODIUM CHLORIDE 0.9% 100 ML IV SCH ×3 (02:13→17:53)
[2020-04-18] MEDS: SENNA/DOCUSATE TABLET NG PRN (02:22)
[2020-04-18] MEDS: INSULIN LISPRO 100 UNITS/ML, PEN SQ-INSULIN SCH ×8 (04:31→23:34)
[2020-04-18] MEDS: ASCORBATE SODIUM IVPB SCH ×3 (04:33→20:34)
[2020-04-18] MEDS: SODIUM CHLORIDE 0.9% IVPB SCH ×3 (04:33→20:34)
[2020-04-18] MEDS: methylPREDNISolone SOD SUCC 40 MG/ML IV SCH ×2 (04:33→16:59)
[2020-04-18 04:35] LABS: MEAN CORPUSCULAR HEMOGLOBIN 28.3 pg (27.0-34.8); MEAN CORPUSCULAR HGB CONC 32.3 g/dL (32.4-35.8); MEAN CORPUSCULAR VOLUME 87.4 fL (80-100); MEAN PLATELET VOLUME 8.8 fL (7.4-10.4); PLATELET COUNT 245 x10^3/uL (130-400); RED BLOOD COUNT 4.24 x10^6/uL (3.82-5.3); RED CELL DISTRIBUTION WIDTH 14.3 % (9.6-15.2)
[2020-04-18 04:39] LABS: ANION GAP 4 mmol/L (5-15); C-REACTIVE PROTEIN, QUANT 0.92 mg/dL (0.02-0.49); CALCIUM 8.3 mg/dL (8.5-10.1); CHLORIDE 108 mmol/L (98-107); CREATININE 1.05 mg/dL (0.55-1.02)
[2020-04-18 05:45] LABS: BASOPHILS # (AUTO) 0.09 x10^3/uL (0-0.1); BASOPHILS % (AUTO) 2 % (0-1); EOSINOPHILS # (AUTO) 0.01 x10^3/uL (0-0.4); EOSINOPHILS % (AUTO) 0 % (1-7); LYMPHOCYTES # (AUTO) 0.28 x10^3/uL (1-3.4); LYMPHOCYTES % (AUTO) 5 % (22-44); MD SCAN; MONOCYTES # (AUTO) 0.27 x10^3/uL (0.2-0.8); MONOCYTES % (AUTO) 5 % (2-9); NEUTROPHILS % (AUTO) 88 % (42-75)
[2020-04-18] MEDS: CHOLECALCIFEROL 1,000 UNIT TABLET PO SCH (08:19)
[2020-04-18] MEDS: FAMOTIDINE 20 MG/2 ML IVPush SCH (08:19)
[2020-04-18] MEDS: ZINC SULFATE 220 MG CAPSULE PO SCH (08:20)
[2020-04-18] MEDS: SODIUM CHLORIDE FLUSH 10ML SYR IVF SCH ×2 (08:20→20:33)
[2020-04-18] MEDS: ENOXAPARIN 60 MG/0.6 ML SQ SCH ×2 (08:20→20:02)
[2020-04-18] MEDS: AcetaZOLAMIDE INJ 500 MG IVPush SCH ×2 (08:20→20:02)
[2020-04-18] MEDS: MIDAZOLAM HCL 50 MG in SODIUM CHLORIDE 0.9% 40 ML IV PRN (10:16)
[2020-04-18] MEDS: INSULIN GLARGINE 100 UNITS/ML, PEN SQ-INSULIN SCH ×2 (10:58→23:35)
[2020-04-18] MEDS: METHYLNALTREXONE 12 MG/0.6 ML SYR SQ SCH (16:59)
[2020-04-18] MEDS: MELATONIN 5 MG TABLET PO SCH ×2 (20:02→23:26)
[2020-04-19] MEDS: AZITHROMYCIN 500 MG in SODIUM CHLORIDE 0.9% 250 ML IV SCH (01:51)
[2020-04-19] MEDS: ALBUTEROL/IPRATROPIUM 2.5MG/0.5MG, 3 ML INLINE SCH ×6 (02:30→22:11)
[2020-04-19] MEDS: AMPICILLIN/SULBACTAM 3 GM in SODIUM CHLORIDE 0.9% 100 ML IV SCH ×3 (03:05→17:48)
[2020-04-19] MEDS: MIDAZOLAM HCL 50 MG in SODIUM CHLORIDE 0.9% 40 ML IV PRN (03:37)
[2020-04-19 04:55] LABS: MEAN CORPUSCULAR HEMOGLOBIN 27.6 pg (27.0-34.8); MEAN CORPUSCULAR HGB CONC 31.1 g/dL (32.4-35.8); MEAN CORPUSCULAR VOLUME 88.6 fL (80-100); MEAN PLATELET VOLUME 8.7 fL (7.4-10.4); PLATELET COUNT 220 x10^3/uL (130-400); RED BLOOD COUNT 4.19 x10^6/uL (3.82-5.3); RED CELL DISTRIBUTION WIDTH 13.9 % (9.6-15.2)
[2020-04-19 04:57] LABS: FIO2 60 %
[2020-04-19 04:58] LABS: ANION GAP 5 mmol/L (5-15); CALCIUM 8.3 mg/dL (8.5-10.1); CHLORIDE 107 mmol/L (98-107)
[2020-04-19 05:06] LABS: MD YES
[2020-04-19 05:07] LABS: ANISOCYTOSIS 1+; BAND#(MANUAL) 0.15 x10^3/uL; BANDS%(MANUAL) 2 % (0-7); LYMPH#(MANUAL) 0.52 x10^3/uL (1-3.4); LYMPHS% (MANUAL) 7 % (22-44); MONOS#(MANUAL) 0.44 x10^3/uL (0.3-2.7); MONOS% (MANUAL) 6 % (2-9); NRBC % (MANUAL) 1 % (0-1); SEG#(MANUAL) 6.29 x10^3/uL (1.8-6.8); SEGS% (MANUAL) 85 % (42-75)
[2020-04-19 05:08] LABS: <PLATELET ESTIMATE> ADEQUATE; <PLT MORPHOLOGY> NORMAL PLT MORPH; POLYCHROMASIA 1+
[2020-04-19] MEDS: INSULIN LISPRO 100 UNITS/ML, PEN SQ-INSULIN SCH ×8 (05:35→23:24)
[2020-04-19] MEDS: SODIUM CHLORIDE 0.9% IVPB SCH ×3 (05:36→20:13)
[2020-04-19] MEDS: methylPREDNISolone SOD SUCC 40 MG/ML IV SCH ×2 (05:36→17:48)
[2020-04-19] MEDS: ASCORBATE SODIUM IVPB SCH ×3 (05:36→20:13)
[2020-04-19] MEDS: AcetaZOLAMIDE INJ 500 MG IVPush SCH ×2 (08:03→20:01)
[2020-04-19] MEDS: SODIUM CHLORIDE FLUSH 10ML SYR IVF SCH ×2 (08:04→20:13)
[2020-04-19] MEDS: metFORMIN 500 MG TABLET PO SCH ×2 (08:04→17:48)
[2020-04-19] MEDS: FAMOTIDINE 20 MG/2 ML IVPush SCH (08:04)
[2020-04-19] MEDS: ENOXAPARIN 60 MG/0.6 ML SQ SCH ×2 (08:04→20:13)
[2020-04-19] MEDS: ZINC SULFATE 220 MG CAPSULE PO SCH (08:04)
[2020-04-19] MEDS: CHOLECALCIFEROL 1,000 UNIT TABLET PO SCH (08:06)
[2020-04-19] MEDS: INSULIN GLARGINE 100 UNITS/ML, PEN SQ-INSULIN SCH ×2 (11:23→23:25)
[2020-04-19] MEDS: MELATONIN 5 MG TABLET PO SCH (20:13)
[2020-04-19] MEDS: FENTANYL PF 1,000 MCG in SODIUM CHLORIDE 0.9% 80 ML IV PRN (23:17)
[2020-04-20] MEDS: AZITHROMYCIN 500 MG in SODIUM CHLORIDE 0.9% 250 ML IV SCH (00:38)
[2020-04-20] MEDS: ALBUTEROL/IPRATROPIUM 2.5MG/0.5MG, 3 ML INLINE SCH ×6 (02:11→22:11)
[2020-04-20] MEDS: AMPICILLIN/SULBACTAM 3 GM in SODIUM CHLORIDE 0.9% 100 ML IV SCH (03:22)
[2020-04-20] MEDS: MIDAZOLAM HCL 50 MG in SODIUM CHLORIDE 0.9% 40 ML IV PRN (03:56)
[2020-04-20 04:49] LABS: BASOPHILS # (AUTO) 0.04 x10^3/uL (0-0.1); BASOPHILS % (AUTO) 1 % (0-1); EOSINOPHILS % (AUTO) 0 % (1-7); LYMPHOCYTES # (AUTO) 0.47 x10^3/uL (1-3.4); LYMPHOCYTES % (AUTO) 6 % (22-44); MD NO; MEAN CORPUSCULAR HEMOGLOBIN 28.9 pg (27.0-34.8); MEAN CORPUSCULAR HGB CONC 33.2 g/dL (32.4-35.8); MEAN CORPUSCULAR VOLUME 87.1 fL (80-100); MEAN PLATELET VOLUME 9.3 fL (7.4-10.4); MONOCYTES # (AUTO) 0.08 x10^3/uL (0.2-0.8); MONOCYTES % (AUTO) 1 % (2-9); NEUTROPHILS # (AUTO) 6.95 x10^3/uL (1.8-6.8); NEUTROPHILS % (AUTO) 92 % (42-75); PLATELET COUNT 198 x10^3/uL (130-400); RED BLOOD COUNT 3.94 x10^6/uL (3.82-5.3); RED CELL DISTRIBUTION WIDTH 13.7 % (9.6-15.2)
[2020-04-20 04:56] LABS: ANION GAP 8 mmol/L (5-15); CALCIUM 8.1 mg/dL (8.5-10.1); CHLORIDE 104 mmol/L (98-107); CREATININE 0.99 mg/dL (0.55-1.02); TRIGLYCERIDES 171 mg/dL (50-200)
[2020-04-20] MEDS: INSULIN LISPRO 100 UNITS/ML, PEN SQ-INSULIN SCH ×8 (05:44→23:11)
[2020-04-20] MEDS: methylPREDNISolone SOD SUCC 40 MG/ML IV SCH ×2 (05:44→16:11)
[2020-04-20] MEDS: ASCORBATE SODIUM IVPB SCH (05:45)
[2020-04-20] MEDS: SODIUM CHLORIDE 0.9% IVPB SCH (05:45)
[2020-04-20] MEDS: CHOLECALCIFEROL 1,000 UNIT TABLET PO SCH (08:36)
[2020-04-20] MEDS: SODIUM CHLORIDE FLUSH 10ML SYR IVF SCH ×2 (08:36→21:40)
[2020-04-20] MEDS: FAMOTIDINE 20 MG/2 ML IVPush SCH (08:37)
[2020-04-20] MEDS: ENOXAPARIN 60 MG/0.6 ML SQ SCH ×2 (08:37→21:40)
[2020-04-20] MEDS: metFORMIN 500 MG TABLET PO SCH ×2 (08:37→16:11)
[2020-04-20] MEDS: ZINC SULFATE 220 MG CAPSULE PO SCH (08:37)
[2020-04-20] MEDS: LACTULOSE 20 GM/30 ML UDC NG PRN (09:31)
[2020-04-20] MEDS: INSULIN GLARGINE 100 UNITS/ML, PEN SQ-INSULIN SCH ×2 (11:10→23:13)
[2020-04-20] MEDS ORDERED: PROPOFOL 100 ML IV ONE (13:00)
[2020-04-20] MEDS ORDERED: PROPOFOL 100 ML IV PRN (13:30)
[2020-04-20] MEDS: METHYLNALTREXONE 12 MG/0.6 ML SYR SQ SCH (16:11)
[2020-04-20] MEDS: MELATONIN 5 MG TABLET PO SCH (21:40)
[2020-04-20] MEDS: PROPOFOL 100 ML IV PRN (21:48)
[2020-04-21] MEDS: FENTANYL PF 1,000 MCG in SODIUM CHLORIDE 0.9% 80 ML IV PRN (02:02)
[2020-04-21] MEDS: ALBUTEROL/IPRATROPIUM 2.5MG/0.5MG, 3 ML INLINE SCH ×6 (02:12→22:01)
[2020-04-21] MEDS: PROPOFOL 100 ML IV PRN ×3 (02:42→22:16)
[2020-04-21] MEDS: methylPREDNISolone SOD SUCC 40 MG/ML IV SCH ×2 (05:11→17:24)
[2020-04-21] MEDS: INSULIN LISPRO 100 UNITS/ML, PEN SQ-INSULIN SCH ×8 (05:12→22:14)
[2020-04-21 05:20] LABS: MEAN CORPUSCULAR HEMOGLOBIN 28.9 pg (27.0-34.8); MEAN CORPUSCULAR HGB CONC 33.5 g/dL (32.4-35.8); MEAN CORPUSCULAR VOLUME 86.3 fL (80-100); MEAN PLATELET VOLUME 9.4 fL (7.4-10.4); PLATELET COUNT 240 x10^3/uL (130-400); RED BLOOD COUNT 4.62 x10^6/uL (3.82-5.3); RED CELL DISTRIBUTION WIDTH 13.5 % (9.6-15.2)
[2020-04-21 05:25] LABS: ANION GAP 10 mmol/L (5-15); CALCIUM 9.3 mg/dL (8.5-10.1); CHLORIDE 105 mmol/L (98-107); CREATININE 0.93 mg/dL (0.55-1.02)
[2020-04-21 05:50] LABS: BASOPHILS # (AUTO) 0.06 x10^3/uL (0-0.1); BASOPHILS % (AUTO) 1 % (0-1); EOSINOPHILS % (AUTO) 0 % (1-7); LYMPHOCYTES # (AUTO) 0.84 x10^3/uL (1-3.4); LYMPHOCYTES % (AUTO) 7 % (22-44); MD SCAN; MONOCYTES # (AUTO) 0.17 x10^3/uL (0.2-0.8); MONOCYTES % (AUTO) 2 % (2-9); NEUTROPHILS # (AUTO) 10.84 x10^3/uL (1.8-6.8); NEUTROPHILS % (AUTO) 91 % (42-75)
[2020-04-21] MEDS: AcetaZOLAMIDE INJ 500 MG IVPush SCH ×2 (08:15→19:23)
[2020-04-21] MEDS: ENOXAPARIN 60 MG/0.6 ML SQ SCH ×2 (08:16→21:01)
[2020-04-21] MEDS: metFORMIN 500 MG TABLET PO SCH ×2 (08:17→17:24)
[2020-04-21] MEDS: FAMOTIDINE 20 MG/2 ML IVPush SCH (08:17)
[2020-04-21] MEDS: ZINC SULFATE 220 MG CAPSULE PO SCH (08:17)
[2020-04-21] MEDS: CHOLECALCIFEROL 1,000 UNIT TABLET PO SCH (08:17)
[2020-04-21] MEDS: SODIUM CHLORIDE FLUSH 10ML SYR IVF SCH ×2 (11:48→19:23)
[2020-04-21] MEDS: INSULIN GLARGINE 100 UNITS/ML, PEN SQ-INSULIN SCH ×2 (11:51→22:15)
[2020-04-21] MEDS: MELATONIN 5 MG TABLET PO SCH (21:00)
[2020-04-22] MEDS: ALBUTEROL/IPRATROPIUM 2.5MG/0.5MG, 3 ML INLINE SCH ×6 (02:13→22:00)
[2020-04-22 04:52] LABS: ANION GAP 12 mmol/L (5-15); BASOPHILS # (AUTO) 0.01 x10^3/uL (0-0.1); BASOPHILS % (AUTO) 0 % (0-1); CALCIUM 8.7 mg/dL (8.5-10.1); CHLORIDE 101 mmol/L (98-107); CREATININE 1.13 mg/dL (0.55-1.02); EOSINOPHILS # (AUTO) 0.03 x10^3/uL (0-0.4); EOSINOPHILS % (AUTO) 0 % (1-7); LYMPHOCYTES # (AUTO) 0.37 x10^3/uL (1-3.4); LYMPHOCYTES % (AUTO) 4 % (22-44); MD NO; MEAN CORPUSCULAR HEMOGLOBIN 28.7 pg (27.0-34.8); MEAN CORPUSCULAR HGB CONC 33.3 g/dL (32.4-35.8); MEAN CORPUSCULAR VOLUME 86.3 fL (80-100); MEAN PLATELET VOLUME 9.6 fL (7.4-10.4); MONOCYTES # (AUTO) 0.19 x10^3/uL (0.2-0.8); MONOCYTES % (AUTO) 2 % (2-9); NEUTROPHILS # (AUTO) 7.81 x10^3/uL (1.8-6.8); NEUTROPHILS % (AUTO) 93 % (42-75); PLATELET COUNT 211 x10^3/uL (130-400); RED BLOOD COUNT 4.25 x10^6/uL (3.82-5.3); RED CELL DISTRIBUTION WIDTH 13.8 % (9.6-15.2)
[2020-04-22] MEDS: PROPOFOL 100 ML IV PRN ×3 (05:04→20:04)
[2020-04-22] MEDS: methylPREDNISolone SOD SUCC 40 MG/ML IV SCH ×2 (05:07→09:25)
[2020-04-22] MEDS: INSULIN LISPRO 100 UNITS/ML, PEN SQ-INSULIN SCH ×8 (05:07→22:24)
[2020-04-22] MEDS: ZINC SULFATE 220 MG CAPSULE PO SCH (09:25)
[2020-04-22] MEDS: FUROSEMIDE 40 MG/4 ML IV SCH ×2 (09:25→16:49)
[2020-04-22] MEDS: FAMOTIDINE 20 MG/2 ML IVPush SCH (09:25)
[2020-04-22] MEDS: ENOXAPARIN 60 MG/0.6 ML SQ SCH ×2 (09:25→20:04)
[2020-04-22] MEDS: CHOLECALCIFEROL 1,000 UNIT TABLET PO SCH (09:26)
[2020-04-22] MEDS: metFORMIN 500 MG TABLET PO SCH ×2 (09:26→16:49)
[2020-04-22] MEDS: SODIUM CHLORIDE FLUSH 10ML SYR IVF SCH ×2 (09:27→20:03)
[2020-04-22] MEDS: INSULIN GLARGINE 100 UNITS/ML, PEN SQ-INSULIN SCH ×2 (12:01→22:25)
[2020-04-22] MEDS: MELATONIN 5 MG TABLET PO SCH (20:03)
[2020-04-23] MEDS: PROPOFOL 100 ML IV PRN ×3 (02:11→21:29)
[2020-04-23] MEDS: ALBUTEROL/IPRATROPIUM 2.5MG/0.5MG, 3 ML INLINE SCH ×6 (02:38→22:37)
[2020-04-23 04:54] LABS: MEAN CORPUSCULAR HEMOGLOBIN 28.2 pg (27.0-34.8); MEAN CORPUSCULAR HGB CONC 32.3 g/dL (32.4-35.8); MEAN CORPUSCULAR VOLUME 87.3 fL (80-100); MEAN PLATELET VOLUME 9.9 fL (7.4-10.4); PLATELET COUNT 197 x10^3/uL (130-400); RED BLOOD COUNT 4.44 x10^6/uL (3.82-5.3); RED CELL DISTRIBUTION WIDTH 13.7 % (9.6-15.2)
[2020-04-23] MEDS: INSULIN LISPRO 100 UNITS/ML, PEN SQ-INSULIN SCH ×8 (05:00→22:59)
[2020-04-23 05:04] LABS: ANION GAP 11 mmol/L (5-15); CALCIUM 8.8 mg/dL (8.5-10.1); CHLORIDE 102 mmol/L (98-107); CREATININE 1.16 mg/dL (0.55-1.02); TRIGLYCERIDES 230 mg/dL (50-200)
[2020-04-23 05:48] LABS: MD YES
[2020-04-23 05:50] LABS: BAND#(MANUAL) 0.07 x10^3/uL; BANDS%(MANUAL) 1 % (0-7); LYMPHS% (MANUAL) 18 % (22-44); MONOS#(MANUAL) 0.29 x10^3/uL (0.3-2.7); MONOS% (MANUAL) 4 % (2-9); SEG#(MANUAL) 5.54 x10^3/uL (1.8-6.8); SEGS% (MANUAL) 77 % (42-75)
[2020-04-23 05:51] LABS: <PLATELET ESTIMATE> ADEQUATE; <PLT MORPHOLOGY> NORMAL PLT MORPH; <RBC MORPHOLOGY> NORMAL
[2020-04-23] MEDS: ZINC SULFATE 220 MG CAPSULE PO SCH (08:11)
[2020-04-23] MEDS: metFORMIN 500 MG TABLET PO SCH ×2 (08:11→17:57)
[2020-04-23] MEDS: CHOLECALCIFEROL 1,000 UNIT TABLET PO SCH (08:11)
[2020-04-23] MEDS: SODIUM CHLORIDE FLUSH 10ML SYR IVF SCH ×2 (08:12→21:28)
[2020-04-23] MEDS: ENOXAPARIN 60 MG/0.6 ML SQ SCH ×2 (08:12→21:29)
[2020-04-23] MEDS: methylPREDNISolone SOD SUCC 40 MG/ML IV SCH (08:12)
[2020-04-23] MEDS: FAMOTIDINE 20 MG/2 ML IVPush SCH (08:12)
[2020-04-23] MEDS: FUROSEMIDE 40 MG/4 ML IV SCH ×2 (08:12→17:58)
[2020-04-23] MEDS: INSULIN GLARGINE 100 UNITS/ML, PEN SQ-INSULIN SCH ×2 (10:57→23:00)
[2020-04-23] MEDS: MELATONIN 5 MG TABLET PO SCH (21:28)
[2020-04-24] MEDS: ALBUTEROL/IPRATROPIUM 2.5MG/0.5MG, 3 ML INLINE SCH ×6 (02:27→22:16)
[2020-04-24] MEDS: INSULIN LISPRO 100 UNITS/ML, PEN SQ-INSULIN SCH ×8 (04:36→23:00)
[2020-04-24] MEDS: PROPOFOL 100 ML IV PRN (04:37)
[2020-04-24 04:56] LABS: MEAN CORPUSCULAR HEMOGLOBIN 28.9 pg (27.0-34.8); MEAN CORPUSCULAR HGB CONC 33.4 g/dL (32.4-35.8); MEAN CORPUSCULAR VOLUME 86.5 fL (80-100); MEAN PLATELET VOLUME 10.3 fL (7.4-10.4); PLATELET COUNT 233 x10^3/uL (130-400); RED CELL DISTRIBUTION WIDTH 14.1 % (9.6-15.2)
[2020-04-24 04:57] LABS: ANION GAP 9 mmol/L (5-15); CHLORIDE 101 mmol/L (98-107)
[2020-04-24 05:00] LABS: CREATININE 1.19 mg/dL (0.55-1.02)
[2020-04-24 05:53] LABS: BASOPHILS % (AUTO) 0 % (0-1); EOSINOPHILS # (AUTO) 0.02 x10^3/uL (0-0.4); EOSINOPHILS % (AUTO) 0 % (1-7); LYMPHOCYTES % (AUTO) 18 % (22-44); MD SCAN; MONOCYTES % (AUTO) 3 % (2-9); NEUTROPHILS % (AUTO) 80 % (42-75)
[2020-04-24] MEDS: FUROSEMIDE 40 MG/4 ML IV SCH (08:12)
[2020-04-24] MEDS: metFORMIN 500 MG TABLET PO SCH ×2 (08:12→17:43)
[2020-04-24] MEDS: methylPREDNISolone SOD SUCC 40 MG/ML IV SCH (09:16)
[2020-04-24] MEDS: CHOLECALCIFEROL 1,000 UNIT TABLET PO SCH (09:16)
[2020-04-24] MEDS: FAMOTIDINE 20 MG/2 ML IVPush SCH (09:17)
[2020-04-24] MEDS: ZINC SULFATE 220 MG CAPSULE PO SCH (09:17)
[2020-04-24] MEDS: ENOXAPARIN 60 MG/0.6 ML SQ SCH ×2 (09:17→19:56)
[2020-04-24] MEDS: SODIUM CHLORIDE FLUSH 10ML SYR IVF SCH ×2 (09:18→19:56)
[2020-04-24] MEDS: INSULIN GLARGINE 100 UNITS/ML, PEN SQ-INSULIN SCH ×2 (11:02→23:00)
[2020-04-24] MEDS ORDERED: ALBUMIN HUMAN 25% 100 ML IV ONE (12:00)
[2020-04-24] MEDS: MELATONIN 5 MG TABLET PO SCH (19:56)
[2020-04-25] MEDS: PROPOFOL 100 ML IV PRN (00:31)
[2020-04-25] MEDS: ALBUTEROL/IPRATROPIUM 2.5MG/0.5MG, 3 ML INLINE SCH ×2 (02:21→06:20)
[2020-04-25 04:46] LABS: ANION GAP 9 mmol/L (5-15); CHLORIDE 104 mmol/L (98-107); CREATININE 1.17 mg/dL (0.55-1.02)
[2020-04-25] MEDS: INSULIN LISPRO 100 UNITS/ML, PEN SQ-INSULIN SCH ×4 (04:51→17:09)
[2020-04-25 04:52] LABS: BASOPHILS % (AUTO) 0 % (0-1); EOSINOPHILS # (AUTO) 0.05 x10^3/uL (0-0.4); EOSINOPHILS % (AUTO) 1 % (1-7); LYMPHOCYTES # (AUTO) 0.98 x10^3/uL (1-3.4); LYMPHOCYTES % (AUTO) 17 % (22-44); MD NO; MEAN CORPUSCULAR HEMOGLOBIN 28.7 pg (27.0-34.8); MEAN CORPUSCULAR HGB CONC 33.3 g/dL (32.4-35.8); MEAN CORPUSCULAR VOLUME 86.4 fL (80-100); MEAN PLATELET VOLUME 9.8 fL (7.4-10.4); MONOCYTES # (AUTO) 0.13 x10^3/uL (0.2-0.8); MONOCYTES % (AUTO) 2 % (2-9); NEUTROPHILS # (AUTO) 4.44 x10^3/uL (1.8-6.8); NEUTROPHILS % (AUTO) 79 % (42-75); PLATELET COUNT 155 x10^3/uL (130-400); RED BLOOD COUNT 4.15 x10^6/uL (3.82-5.3); RED CELL DISTRIBUTION WIDTH 13.8 % (9.6-15.2)
[2020-04-25] MEDS: ACETAMINOPHEN 650 MG SUPP PR PRN (05:36)
[2020-04-25] MEDS: metFORMIN 500 MG TABLET PO SCH ×2 (08:00→17:00)
[2020-04-25] MEDS: ZINC SULFATE 220 MG CAPSULE PO SCH (08:57)
[2020-04-25] MEDS: FAMOTIDINE 20 MG/2 ML IVPush SCH (08:58)
[2020-04-25] MEDS: methylPREDNISolone SOD SUCC 40 MG/ML IV SCH (08:58)
[2020-04-25] MEDS: CHOLECALCIFEROL 1,000 UNIT TABLET PO SCH (08:59)
[2020-04-25] MEDS: SODIUM CHLORIDE FLUSH 10ML SYR IVF SCH ×2 (08:59→19:35)
[2020-04-25] MEDS: ENOXAPARIN 60 MG/0.6 ML SQ SCH ×2 (08:59→19:35)
[2020-04-25] MEDS ORDERED: INSULIN GLARGINE 100 UNITS/ML, PEN SQ-INSULIN SCH (11:00)
[2020-04-25] MEDS: MELATONIN 5 MG TABLET PO SCH (19:35)
[2020-04-26] MEDS ORDERED: MIDAZOLAM 1 MG/ML, 2ML IVPush PRN ×2
[2020-04-26] MEDS: INSULIN GLARGINE 100 UNITS/ML, PEN SQ-INSULIN SCH ×3 (00:05→23:29)
[2020-04-26] MEDS: INSULIN LISPRO 100 UNITS/ML, PEN SQ-INSULIN SCH ×5 (00:06→23:28)
[2020-04-26 05:13] LABS: ANION GAP 6 mmol/L (5-15); CALCIUM 8.9 mg/dL (8.5-10.1); CHLORIDE 102 mmol/L (98-107); CREATININE 0.82 mg/dL (0.55-1.02)
[2020-04-26 05:17] LABS: TRIGLYCERIDES 242 mg/dL (50-200)
[2020-04-26 05:45] LABS: MEAN CORPUSCULAR HEMOGLOBIN 28.5 pg (27.0-34.8); MEAN CORPUSCULAR HGB CONC 32.8 g/dL (32.4-35.8); MEAN CORPUSCULAR VOLUME 86.9 fL (80-100); PLATELET COUNT 233 x10^3/uL (130-400); RED BLOOD COUNT 4.26 x10^6/uL (3.82-5.3); RED CELL DISTRIBUTION WIDTH 13.9 % (9.6-15.2)
[2020-04-26 05:51] LABS: BASOPHILS % (AUTO) 0 % (0-1); EOSINOPHILS # (AUTO) 0.05 x10^3/uL (0-0.4); EOSINOPHILS % (AUTO) 1 % (1-7); LYMPHOCYTES # (AUTO) 0.99 x10^3/uL (1-3.4); LYMPHOCYTES % (AUTO) 17 % (22-44); MD SCAN; MONOCYTES # (AUTO) 0.13 x10^3/uL (0.2-0.8); MONOCYTES % (AUTO) 2 % (2-9); NEUTROPHILS # (AUTO) 4.68 x10^3/uL (1.8-6.8); NEUTROPHILS % (AUTO) 80 % (42-75)
[2020-04-26] MEDS: CHOLECALCIFEROL 1,000 UNIT TABLET PO SCH (09:00)
[2020-04-26] MEDS: ZINC SULFATE 220 MG CAPSULE PO SCH (09:00)
[2020-04-26] MEDS: FAMOTIDINE 20 MG/2 ML IVPush SCH (09:00)
[2020-04-26] MEDS: methylPREDNISolone SOD SUCC 40 MG/ML IV SCH (09:00)
[2020-04-26] MEDS: ENOXAPARIN 60 MG/0.6 ML SQ SCH ×2 (09:00→20:14)
[2020-04-26] MEDS: SODIUM CHLORIDE FLUSH 10ML SYR IVF SCH ×2 (09:00→20:14)
[2020-04-26] MEDS: LACTULOSE 20 GM/30 ML UDC NG PRN (12:29)
[2020-04-26] MEDS: MELATONIN 5 MG TABLET PO SCH (20:14)
[2020-04-27 05:16] LABS: BASOPHILS % (AUTO) 1 % (0-1); EOSINOPHILS # (AUTO) 0.01 x10^3/uL (0-0.4); EOSINOPHILS % (AUTO) 0 % (1-7); LYMPHOCYTES % (AUTO) 11 % (22-44); MD NO; MEAN CORPUSCULAR HEMOGLOBIN 28.8 pg (27.0-34.8); MEAN CORPUSCULAR HGB CONC 33.4 g/dL (32.4-35.8); MEAN CORPUSCULAR VOLUME 86.3 fL (80-100); MEAN PLATELET VOLUME 9.9 fL (7.4-10.4); MONOCYTES # (AUTO) 0.12 x10^3/uL (0.2-0.8); MONOCYTES % (AUTO) 1 % (2-9); NEUTROPHILS # (AUTO) 8.14 x10^3/uL (1.8-6.8); NEUTROPHILS % (AUTO) 87 % (42-75); PLATELET COUNT 273 x10^3/uL (130-400); RED BLOOD COUNT 4.16 x10^6/uL (3.82-5.3); RED CELL DISTRIBUTION WIDTH 14.2 % (9.6-15.2)
[2020-04-27 05:29] LABS: ANION GAP 7 mmol/L (5-15); CALCIUM 9.2 mg/dL (8.5-10.1); CHLORIDE 101 mmol/L (98-107); CREATININE 1.06 mg/dL (0.55-1.02)
[2020-04-27] MEDS: INSULIN LISPRO 100 UNITS/ML, PEN SQ-INSULIN SCH ×4 (06:03→23:36)
[2020-04-27] MEDS: methylPREDNISolone SOD SUCC 40 MG/ML IV SCH (10:09)
[2020-04-27] MEDS: SENNA/DOCUSATE TABLET NG PRN (10:10)
[2020-04-27] MEDS: ZINC SULFATE 220 MG CAPSULE PO SCH (10:10)
[2020-04-27] MEDS: SODIUM CHLORIDE FLUSH 10ML SYR IVF SCH ×2 (10:10→20:29)
[2020-04-27] MEDS: FAMOTIDINE 20 MG/2 ML IVPush SCH (10:10)
[2020-04-27] MEDS: ENOXAPARIN 60 MG/0.6 ML SQ SCH ×2 (10:11→20:29)
[2020-04-27] MEDS: CHOLECALCIFEROL 1,000 UNIT TABLET PO SCH (10:11)
[2020-04-27 10:58] VITALS: BP 121/75
[2020-04-27] MEDS: INSULIN GLARGINE 100 UNITS/ML, PEN SQ-INSULIN SCH ×2 (11:09→23:36)
[2020-04-27 15:31] VITALS: BP 117/71
[2020-04-27 19:03] VITALS: BP 122/72
[2020-04-27] MEDS: MELATONIN 5 MG TABLET PO SCH (20:29)
[2020-04-27 23:00] VITALS: BP 108/58
[2020-04-28] VITALS (7 sets, daily range): BP systolic 82–122; BP diastolic 40–71
[2020-04-28] MEDS: INSULIN LISPRO 100 UNITS/ML, PEN SQ-INSULIN SCH ×4 (05:16→22:47)
[2020-04-28 06:03] LABS: ANION GAP 7 mmol/L (5-15); CALCIUM 8.6 mg/dL (8.5-10.1); CHLORIDE 103 mmol/L (98-107)
[2020-04-28 06:04] LABS: CREATININE 1.44 mg/dL (0.55-1.02)
[2020-04-28 06:10] LABS: BASOPHILS % (AUTO) 0 % (0-1); EOSINOPHILS % (AUTO) 0 % (1-7); LYMPHOCYTES # (AUTO) 1.28 x10^3/uL (1-3.4); LYMPHOCYTES % (AUTO) 9 % (22-44); MD NO; MEAN CORPUSCULAR HEMOGLOBIN 28.9 pg (27.0-34.8); MEAN CORPUSCULAR HGB CONC 32.9 g/dL (32.4-35.8); MEAN CORPUSCULAR VOLUME 87.7 fL (80-100); MEAN PLATELET VOLUME 9.9 fL (7.4-10.4); MONOCYTES # (AUTO) 0.34 x10^3/uL (0.2-0.8); MONOCYTES % (AUTO) 3 % (2-9); NEUTROPHILS # (AUTO) 12.03 x10^3/uL (1.8-6.8); NEUTROPHILS % (AUTO) 88 % (42-75); PLATELET COUNT 290 x10^3/uL (130-400); RED BLOOD COUNT 3.95 x10^6/uL (3.82-5.3); RED CELL DISTRIBUTION WIDTH 14.2 % (9.6-15.2)
[2020-04-28] MEDS: FAMOTIDINE 20 MG/2 ML IVPush SCH (10:18)
[2020-04-28] MEDS: CHOLECALCIFEROL 1,000 UNIT TABLET PO SCH (10:18)
[2020-04-28] MEDS: ENOXAPARIN 60 MG/0.6 ML SQ SCH ×2 (10:18→21:41)
[2020-04-28] MEDS: ZINC SULFATE 220 MG CAPSULE PO SCH (10:19)
[2020-04-28] MEDS: SODIUM CHLORIDE FLUSH 10ML SYR IVF SCH ×2 (10:19→20:19)
[2020-04-28] MEDS: ACETAMINOPHEN 650 MG SUPP PR PRN ×2 (11:32→20:18)
[2020-04-28] MEDS: INSULIN GLARGINE 100 UNITS/ML, PEN SQ-INSULIN SCH ×2 (11:53→22:46)
[2020-04-28 12:45] LABS: MICROSCOPIC INDICATED
[2020-04-28] MEDS ORDERED: CEFTRIAXONE PMX 1GM/50ML 50 ML IV SCH (14:00)
[2020-04-28] MEDS: MELATONIN 5 MG TABLET PO SCH (20:19)
[2020-04-28] MEDS ORDERED: SODIUM CHLORIDE 0.9%, 500ML IVBOLUS ONE (20:30)
[2020-04-29] VITALS (7 sets, daily range): BP systolic 76–110; BP diastolic 38–55
[2020-04-29] MEDS: ACETAMINOPHEN 650 MG SUPP PR PRN ×2 (00:15→06:22)
[2020-04-29] MEDS ORDERED: SODIUM CHLORIDE 0.9%, 500ML IVBOLUS ONE (04:00)
[2020-04-29] MEDS ORDERED: PHARMACY MAY ADJ FOR RENAL FX MC PRN ×2 (05:00→08:00)
[2020-04-29] MEDS: INSULIN LISPRO 100 UNITS/ML, PEN SQ-INSULIN SCH ×4 (05:07→22:58)
[2020-04-29] MEDS: LACTATED RINGERS 1,000 ML IV SCH ×2 (05:07→15:38)
[2020-04-29 05:41] LABS: CHLORIDE 106 mmol/L (98-107)
[2020-04-29 06:13] LABS: MD YES; MEAN CORPUSCULAR HEMOGLOBIN 29.6 pg (27.0-34.8); MEAN CORPUSCULAR HGB CONC 33.5 g/dL (32.4-35.8); MEAN CORPUSCULAR VOLUME 88.2 fL (80-100); MEAN PLATELET VOLUME 9.5 fL (7.4-10.4); PLATELET COUNT 291 x10^3/uL (130-400); RED BLOOD COUNT 3.25 x10^6/uL (3.82-5.3); RED CELL DISTRIBUTION WIDTH 15.6 % (9.6-15.2)
[2020-04-29 06:15] LABS: BANDS%(MANUAL) 2 % (0-7); LYMPHS% (MANUAL) 12 % (22-44); MONOS% (MANUAL) 6 % (2-9); NRBC % (MANUAL) 10 % (0-1); POLYCHROMASIA 1+; SEGS% (MANUAL) 80 % (42-75)
[2020-04-29 06:16] LABS: <PLATELET ESTIMATE> ADEQUATE; <PLT MORPHOLOGY> NORMAL PLT MORPH; ANISOCYTOSIS 1+
[2020-04-29 06:19] LABS: HCT (SEDRATE) 28.6 % (34.6-47.8)
[2020-04-29 06:42] LABS: ALANINE AMINOTRANSFERASE 38 U/L (12-78); ALBUMIN 2.8 g/dL (3.4-5.0); ALKALINE PHOSPHATASE 42 U/L (45-117); ANION GAP 12 mmol/L (5-15); BILIRUBIN,TOTAL 0.7 mg/dL (0.2-1.0); C-REACTIVE PROTEIN, QUANT 0.12 mg/dL (0.02-0.49); CALCIUM 7.8 mg/dL (8.5-10.1); CREATININE 2.96 mg/dL (0.55-1.02); TOTAL PROTEIN 5.7 g/dL (6.4-8.2)
[2020-04-29] MEDS ORDERED: SODIUM CHLORIDE 0.9% 1,000ML IVBOLUS ONE (07:30)
[2020-04-29] MEDS ORDERED: VANCOMYCIN PER PHARMACY MC PRN (08:00)
[2020-04-29] MEDS: PROPOFOL 100 ML IV PRN ×2 (08:10→18:07)
[2020-04-29] MEDS ORDERED: MIDAZOLAM 1 MG/ML, 2ML IVPush ONE (08:30)
[2020-04-29] MEDS ORDERED: PHARMACOKINETIC MONITORING MC PRN (08:30)
[2020-04-29] MEDS ORDERED: LIDOCAINE-MPF 1%, 2ML ENDO PRN (08:30)
[2020-04-29] MEDS ORDERED: ETOMIDATE 20 MG/10 ML IVPush ONE (08:30)
[2020-04-29] MEDS ORDERED: PHARMACY MAY ADJ FOR RENAL FX MC SCH (08:30)
[2020-04-29] MEDS ORDERED: VANCOMYCIN 1,400 MG in SODIUM CHLORIDE 0.9% 250 ML IV ONE ×2 (09:00→13:00)
[2020-04-29] MEDS ORDERED: ETOMIDATE 20 MG/10 ML ONE (09:00)
[2020-04-29] MEDS ORDERED: MIDAZOLAM 1 MG/ML, 5ML ONE (09:00)
[2020-04-29] MEDS ORDERED: SUCCINYLCHOLINE 20 MG/ML, 10ML ONE (09:00)
[2020-04-29] MEDS ORDERED: ROCURONIUM 10MG/ML,5ML ONE (09:00)
[2020-04-29] MEDS: methylPREDNISolone SOD SUCC 40 MG/ML IVPush SCH ×2 (11:05→20:00)
[2020-04-29] MEDS: ZINC SULFATE 220 MG CAPSULE PO SCH (11:05)
[2020-04-29] MEDS: FAMOTIDINE 20 MG/2 ML IVPush SCH (11:05)
[2020-04-29] MEDS: ENOXAPARIN 60 MG/0.6 ML SQ SCH (11:05)
[2020-04-29] MEDS: PIPERACILLIN/TAZO/PMX 3.375GM 50 ML IV ONE ×2 (11:06→12:08)
[2020-04-29] MEDS: CHOLECALCIFEROL 1,000 UNIT TABLET PO SCH (11:06)
[2020-04-29] MEDS: SODIUM CHLORIDE FLUSH 10ML SYR IVF SCH ×2 (11:06→20:02)
[2020-04-29] MEDS: INSULIN GLARGINE 100 UNITS/ML, PEN SQ-INSULIN SCH ×2 (11:50→22:58)
[2020-04-29] MEDS: NOREPINEPHRINE 8 MG in SODIUM CHLORIDE 0.9% 242 ML IV PRN ×2 (13:08→19:48)
[2020-04-29] MEDS: PIPERACILLIN/TAZO/PMX 2.25GM 50 ML IV SCH ×2 (15:38→20:00)
[2020-04-29] MEDS: MELATONIN 5 MG TABLET PO SCH (20:00)
[2020-04-30] MEDS: LACTATED RINGERS 1,000 ML IV SCH ×3 (02:58→17:03)
[2020-04-30] MEDS: PIPERACILLIN/TAZO/PMX 2.25GM 50 ML IV SCH ×2 (04:39→11:19)
[2020-04-30] MEDS: INSULIN LISPRO 100 UNITS/ML, PEN SQ-INSULIN SCH ×4 (04:40→23:00)
[2020-04-30 05:21] LABS: ANION GAP 9 mmol/L (5-15); CALCIUM 7.3 mg/dL (8.5-10.1); CHLORIDE 116 mmol/L (98-107); CREATININE 2.06 mg/dL (0.55-1.02)
[2020-04-30 05:23] LABS: MEAN CORPUSCULAR HEMOGLOBIN 29.6 pg (27.0-34.8); MEAN CORPUSCULAR HGB CONC 33.1 g/dL (32.4-35.8); MEAN CORPUSCULAR VOLUME 89.5 fL (80-100); MEAN PLATELET VOLUME 8.8 fL (7.4-10.4); PLATELET COUNT 212 x10^3/uL (130-400); RED BLOOD COUNT 2.66 x10^6/uL (3.82-5.3); RED CELL DISTRIBUTION WIDTH 16.4 % (9.6-15.2)
[2020-04-30 05:26] LABS: BASOPHILS # (AUTO) 0.15 x10^3/uL (0-0.1); BASOPHILS % (AUTO) 1 % (0-1); EOSINOPHILS # (AUTO) 0.01 x10^3/uL (0-0.4); EOSINOPHILS % (AUTO) 0 % (1-7); LYMPHOCYTES # (AUTO) 1.52 x10^3/uL (1-3.4); LYMPHOCYTES % (AUTO) 10 % (22-44); MD SCAN; MONOCYTES % (AUTO) 1 % (2-9); NEUTROPHILS # (AUTO) 13.65 x10^3/uL (1.8-6.8); NEUTROPHILS % (AUTO) 88 % (42-75)
[2020-04-30] MEDS: PROPOFOL 100 ML IV PRN (06:51)
[2020-04-30] MEDS: CHOLECALCIFEROL 1,000 UNIT TABLET PO SCH (09:00)
[2020-04-30] MEDS ORDERED: SODIUM CHLORIDE 0.9%, 500ML IVBOLUS ONE (09:00)
[2020-04-30] MEDS: FAMOTIDINE 20 MG/2 ML IVPush SCH (09:23)
[2020-04-30] MEDS: methylPREDNISolone SOD SUCC 40 MG/ML IVPush SCH ×2 (09:23→21:04)
[2020-04-30] MEDS: SODIUM CHLORIDE FLUSH 10ML SYR IVF SCH ×2 (09:23→21:04)
[2020-04-30] MEDS: ZINC SULFATE 220 MG CAPSULE PO SCH (09:24)
[2020-04-30] MEDS ORDERED: INSULIN GLARGINE 100 UNITS/ML, PEN SQ-INSULIN SCH (11:00)
[2020-04-30] MEDS: ENOXAPARIN 60 MG/0.6 ML SQ SCH (11:18)
[2020-04-30] MEDS: INSULIN GLARGINE 100 UNITS/ML, PEN SQ-INSULIN SCH (11:19)
[2020-04-30] MEDS: MEROPENEM 500 MG in SODIUM CHLORIDE 0.9% 100 ML IV SCH (12:37)
[2020-04-30] MEDS ORDERED: VANCOMYCIN 1,400 MG in SODIUM CHLORIDE 0.9% 250 ML IV SCH (14:00)
[2020-04-30] MEDS: MELATONIN 5 MG TABLET PO SCH (21:03)
[2020-05-01] MEDS: MEROPENEM 500 MG in SODIUM CHLORIDE 0.9% 100 ML IV SCH ×2 (00:06→11:24)
[2020-05-01] MEDS: INSULIN GLARGINE 100 UNITS/ML, PEN SQ-INSULIN SCH ×3 (00:11→22:30)
[2020-05-01] MEDS: LACTATED RINGERS 1,000 ML IV SCH ×3 (01:16→18:43)
[2020-05-01] MEDS: INSULIN LISPRO 100 UNITS/ML, PEN SQ-INSULIN SCH ×4 (03:51→22:31)
[2020-05-01 04:48] LABS: ANION GAP 8 mmol/L (5-15); CALCIUM 7.3 mg/dL (8.5-10.1); CHLORIDE 118 mmol/L (98-107)
[2020-05-01 05:20] LABS: MEAN CORPUSCULAR HEMOGLOBIN 29.3 pg (27.0-34.8); MEAN CORPUSCULAR HGB CONC 32.5 g/dL (32.4-35.8); MEAN PLATELET VOLUME 9.2 fL (7.4-10.4); PLATELET COUNT 225 x10^3/uL (130-400); RED BLOOD COUNT 2.14 x10^6/uL (3.82-5.3); RED CELL DISTRIBUTION WIDTH 16.5 % (9.6-15.2)
[2020-05-01 05:27] LABS: MD YES
[2020-05-01 05:29] LABS: LYMPH#(MANUAL) 1.23 x10^3/uL (1-3.4); LYMPHS% (MANUAL) 11 % (22-44); MONOS#(MANUAL) 0.34 x10^3/uL (0.3-2.7); MONOS% (MANUAL) 3 % (2-9); NRBC % (MANUAL) 8 % (0-1); SEG#(MANUAL) 9.63 x10^3/uL (1.8-6.8); SEGS% (MANUAL) 86 % (42-75)
[2020-05-01 05:30] LABS: <PLATELET ESTIMATE> ADEQUATE; <PLT MORPHOLOGY> NORMAL PLT MORPH; ANISOCYTOSIS 1+; POLYCHROMASIA 1+
[2020-05-01] MEDS: ZINC SULFATE 220 MG CAPSULE PO SCH (08:12)
[2020-05-01] MEDS: methylPREDNISolone SOD SUCC 40 MG/ML IVPush SCH ×2 (08:12→20:12)
[2020-05-01] MEDS: FAMOTIDINE 20 MG/2 ML IVPush SCH (08:13)
[2020-05-01] MEDS: SODIUM CHLORIDE FLUSH 10ML SYR IVF SCH ×2 (08:13→20:12)
[2020-05-01] MEDS: CHOLECALCIFEROL 1,000 UNIT TABLET PO SCH (08:13)
[2020-05-01 11:03] VITALS: BP 130/70
[2020-05-01] MEDS: ENOXAPARIN 60 MG/0.6 ML SQ SCH ×2 (11:21→11:39)
[2020-05-01 11:25] VITALS: BP 119/64
[2020-05-01] MEDS: FENTANYL PF 100 MCG/2ML IVPush PRN (14:20)
[2020-05-01] MEDS: PROPOFOL 100 ML IV PRN ×2 (14:23→22:26)
[2020-05-01 14:27] VITALS: BP 116/61
[2020-05-01 15:30] VITALS: BP 104/53
[2020-05-01] MEDS: MELATONIN 5 MG TABLET PO SCH (20:12)
[2020-05-01] MEDS: MEROPENEM 1 GM in SODIUM CHLORIDE 0.9% 100 ML IV SCH (22:29)
[2020-05-01] MEDS ORDERED: ENOXAPARIN 60 MG/0.6 ML SQ SCH (23:00)
[2020-05-02] MEDS: PROPOFOL 100 ML IV PRN (02:15)
[2020-05-02] MEDS: LACTATED RINGERS 1,000 ML IV SCH ×2 (02:15→16:19)
[2020-05-02] MEDS: INSULIN LISPRO 100 UNITS/ML, PEN SQ-INSULIN SCH ×4 (04:31→22:15)
[2020-05-02 04:49] LABS: ANION GAP 8 mmol/L (5-15); CALCIUM 7.2 mg/dL (8.5-10.1); CHLORIDE 116 mmol/L (98-107); CREATININE 0.95 mg/dL (0.55-1.02); TRIGLYCERIDES 617 mg/dL (50-200)
[2020-05-02 05:02] LABS: MEAN CORPUSCULAR HEMOGLOBIN 30.3 pg (27.0-34.8); MEAN CORPUSCULAR HGB CONC 33.3 g/dL (32.4-35.8); MEAN CORPUSCULAR VOLUME 90.8 fL (80-100); MEAN PLATELET VOLUME 9.1 fL (7.4-10.4); PLATELET COUNT 171 x10^3/uL (130-400); RED BLOOD COUNT 2.43 x10^6/uL (3.82-5.3); RED CELL DISTRIBUTION WIDTH 15.4 % (9.6-15.2)
[2020-05-02 05:48] LABS: MD YES
[2020-05-02 05:50] LABS: BAND#(MANUAL) 0.35 x10^3/uL; BANDS%(MANUAL) 4 % (0-7); LYMPH#(MANUAL) 0.53 x10^3/uL (1-3.4); LYMPHS% (MANUAL) 6 % (22-44); MYELOCYTES# (MANUAL) 0.09 x10^3/uL (0-0); MYELOCYTES% (MANUAL) 1 % (0-0); NRBC % (MANUAL) 24 % (0-1); SEG#(MANUAL) 7.83 x10^3/uL (1.8-6.8); SEGS% (MANUAL) 89 % (42-75)
[2020-05-02 05:51] LABS: <PLATELET ESTIMATE> ADEQUATE; <PLT MORPHOLOGY> NORMAL PLT MORPH; ANISOCYTOSIS 1+; POLYCHROMASIA 1+
[2020-05-02] MEDS: CHOLECALCIFEROL 1,000 UNIT TABLET PO SCH (09:00)
[2020-05-02] MEDS: MIDAZOLAM HCL 50 MG in SODIUM CHLORIDE 0.9% 40 ML IV PRN ×2 (10:28→16:18)
[2020-05-02] MEDS: BISACODYL 10 MG SUPP PR PRN ×2 (10:33→21:59)
[2020-05-02] MEDS: ZINC SULFATE 220 MG CAPSULE PO SCH (10:33)
[2020-05-02] MEDS: methylPREDNISolone SOD SUCC 40 MG/ML IVPush SCH ×2 (10:33→20:44)
[2020-05-02] MEDS: FAMOTIDINE 20 MG/2 ML IVPush SCH (10:33)
[2020-05-02] MEDS: SODIUM CHLORIDE FLUSH 10ML SYR IVF SCH ×2 (10:34→20:45)
[2020-05-02] MEDS: INSULIN GLARGINE 100 UNITS/ML, PEN SQ-INSULIN SCH (11:00)
[2020-05-02] MEDS: MEROPENEM 1 GM in SODIUM CHLORIDE 0.9% 100 ML IV SCH ×2 (11:01→22:15)
[2020-05-02] MEDS: FENTANYL PF 100 MCG/2ML IVPush PRN (16:18)
[2020-05-02] MEDS: SENNA/DOCUSATE TABLET NG PRN (20:44)
[2020-05-02] MEDS: MELATONIN 5 MG TABLET PO SCH (20:44)
[2020-05-02] MEDS ORDERED: BISACODYL 10 MG SUPP PR PRN (21:00)
[2020-05-03] MEDS: MIDAZOLAM HCL 50 MG in SODIUM CHLORIDE 0.9% 40 ML IV PRN ×4 (00:06→21:33)
[2020-05-03] MEDS: INSULIN LISPRO 100 UNITS/ML, PEN SQ-INSULIN SCH ×3 (04:58→17:12)
[2020-05-03 05:05] LABS: ANION GAP 6 mmol/L (5-15); CALCIUM 7.7 mg/dL (8.5-10.1); CHLORIDE 114 mmol/L (98-107)
[2020-05-03 05:36] LABS: MEAN CORPUSCULAR HEMOGLOBIN 30.4 pg (27.0-34.8); MEAN CORPUSCULAR HGB CONC 33.2 g/dL (32.4-35.8); MEAN CORPUSCULAR VOLUME 91.4 fL (80-100); MEAN PLATELET VOLUME 8.9 fL (7.4-10.4); PLATELET COUNT 170 x10^3/uL (130-400); RED BLOOD COUNT 2.58 x10^6/uL (3.82-5.3); RED CELL DISTRIBUTION WIDTH 15.4 % (9.6-15.2)
[2020-05-03 06:25] LABS: MD YES
[2020-05-03 06:27] LABS: <PLATELET ESTIMATE> ADEQUATE; <PLT MORPHOLOGY> NORMAL PLT MORPH; ANISOCYTOSIS 1+; LYMPH#(MANUAL) 0.82 x10^3/uL (1-3.4); LYMPHS% (MANUAL) 8 % (22-44); MYELOCYTES% (MANUAL) 1 % (0-0); NRBC % (MANUAL) 20 % (0-1); POLYCHROMASIA 1+; SEG#(MANUAL) 9.28 x10^3/uL (1.8-6.8); SEGS% (MANUAL) 91 % (42-75)
[2020-05-03] MEDS: ZINC SULFATE 220 MG CAPSULE PO SCH (08:09)
[2020-05-03] MEDS: SODIUM CHLORIDE FLUSH 10ML SYR IVF SCH ×2 (08:09→20:08)
[2020-05-03] MEDS: CHOLECALCIFEROL 1,000 UNIT TABLET PO SCH (08:09)
[2020-05-03] MEDS: FAMOTIDINE 20 MG/2 ML IVPush SCH (08:09)
[2020-05-03] MEDS: methylPREDNISolone SOD SUCC 40 MG/ML IVPush SCH ×2 (08:09→20:07)
[2020-05-03] MEDS: BISACODYL 10 MG SUPP PR SCH ×2 (08:10→20:08)
[2020-05-03] MEDS: MEROPENEM 1 GM in SODIUM CHLORIDE 0.9% 100 ML IV SCH ×2 (10:31→17:13)
[2020-05-03] MEDS: MELATONIN 5 MG TABLET PO SCH (20:07)
[2020-05-04] MEDS: INSULIN LISPRO 100 UNITS/ML, PEN SQ-INSULIN SCH ×5 (00:34→22:45)
[2020-05-04] MEDS: MEROPENEM 1 GM in SODIUM CHLORIDE 0.9% 100 ML IV SCH ×3 (02:07→17:20)
[2020-05-04] MEDS: MIDAZOLAM HCL 50 MG in SODIUM CHLORIDE 0.9% 40 ML IV PRN (04:56)
[2020-05-04 05:59] LABS: ANION GAP 9 mmol/L (5-15); CALCIUM 7.7 mg/dL (8.5-10.1); CHLORIDE 107 mmol/L (98-107); CREATININE 0.85 mg/dL (0.55-1.02)
[2020-05-04 06:45] LABS: MEAN CORPUSCULAR HGB CONC 32.7 g/dL (32.4-35.8); MEAN CORPUSCULAR VOLUME 91.7 fL (80-100); MEAN PLATELET VOLUME 8.5 fL (7.4-10.4); PLATELET COUNT 189 x10^3/uL (130-400); RED BLOOD COUNT 2.74 x10^6/uL (3.82-5.3); RED CELL DISTRIBUTION WIDTH 15.8 % (9.6-15.2)
[2020-05-04 06:46] LABS: MD YES
[2020-05-04 06:47] LABS: ANISOCYTOSIS 1+; LYMPH#(MANUAL) 0.34 x10^3/uL (1-3.4); LYMPHS% (MANUAL) 4 % (22-44); METAMYELOCYTES# (MANUAL) 0.09 x10^3/uL (0-0); METAMYELOCYTES% (MANUAL) 1 % (0-1); MONOS#(MANUAL) 0.09 x10^3/uL (0.3-2.7); MONOS% (MANUAL) 1 % (2-9); NRBC % (MANUAL) 10 % (0-1); POLYCHROMASIA 1+; SEG#(MANUAL) 8.08 x10^3/uL (1.8-6.8); SEGS% (MANUAL) 94 % (42-75)
[2020-05-04 06:48] LABS: <PLATELET ESTIMATE> ADEQUATE; <PLT MORPHOLOGY> NORMAL PLT MORPH
[2020-05-04] MEDS: methylPREDNISolone SOD SUCC 40 MG/ML IVPush SCH ×2 (08:21→09:30)
[2020-05-04] MEDS: LACTATED RINGERS 1,000 ML IV SCH (08:21)
[2020-05-04] MEDS: FAMOTIDINE 20 MG/2 ML IVPush SCH (08:21)
[2020-05-04] MEDS: BISACODYL 10 MG SUPP PR SCH ×2 (08:22→20:39)
[2020-05-04] MEDS: SODIUM CHLORIDE FLUSH 10ML SYR IVF SCH ×2 (08:22→20:39)
[2020-05-04] MEDS: MELATONIN 5 MG TABLET PO SCH (20:39)
[2020-05-04] MEDS: FENTANYL PF 100 MCG/2ML IVPush PRN (22:41)
[2020-05-05] MEDS: MEROPENEM 1 GM in SODIUM CHLORIDE 0.9% 100 ML IV SCH ×3 (02:06→17:42)
[2020-05-05] MEDS: INSULIN LISPRO 100 UNITS/ML, PEN SQ-INSULIN SCH ×4 (03:58→23:16)
[2020-05-05] MEDS: MIDAZOLAM HCL 50 MG in SODIUM CHLORIDE 0.9% 40 ML IV PRN ×2 (04:00→21:47)
[2020-05-05 04:37] LABS: ANION GAP 8 mmol/L (5-15); CALCIUM 7.4 mg/dL (8.5-10.1); CHLORIDE 105 mmol/L (98-107)
[2020-05-05 04:39] LABS: CREATININE 0.82 mg/dL (0.55-1.02); TRIGLYCERIDES 449 mg/dL (50-200)
[2020-05-05 04:42] LABS: MEAN CORPUSCULAR HEMOGLOBIN 30.6 pg (27.0-34.8); MEAN CORPUSCULAR HGB CONC 33.1 g/dL (32.4-35.8); MEAN CORPUSCULAR VOLUME 92.5 fL (80-100); MEAN PLATELET VOLUME 8.5 fL (7.4-10.4); PLATELET COUNT 187 x10^3/uL (130-400); RED BLOOD COUNT 2.64 x10^6/uL (3.82-5.3); RED CELL DISTRIBUTION WIDTH 15.8 % (9.6-15.2)
[2020-05-05 05:43] LABS: MD YES
[2020-05-05 05:45] LABS: <PLATELET ESTIMATE> ADEQUATE; <PLT MORPHOLOGY> NORMAL PLT MORPH; ANISOCYTOSIS 1+; BAND#(MANUAL) 0.19 x10^3/uL; BANDS%(MANUAL) 2 % (0-7); EOS#(MANUAL) 0.09 x10^3/uL (0.0-0.4); EOS% (MANUAL) 1 % (1-7); LYMPH#(MANUAL) 0.75 x10^3/uL (1-3.4); LYMPHS% (MANUAL) 8 % (22-44); METAMYELOCYTES# (MANUAL) 0.09 x10^3/uL (0-0); METAMYELOCYTES% (MANUAL) 1 % (0-1); MONOS#(MANUAL) 0.28 x10^3/uL (0.3-2.7); MONOS% (MANUAL) 3 % (2-9); NRBC % (MANUAL) 3 % (0-1); POLYCHROMASIA 1+; SEG#(MANUAL) 7.99 x10^3/uL (1.8-6.8); SEGS% (MANUAL) 85 % (42-75)
[2020-05-05] MEDS: BISACODYL 10 MG SUPP PR SCH ×2 (07:46→20:40)
[2020-05-05] MEDS: SODIUM CHLORIDE FLUSH 10ML SYR IVF SCH ×2 (07:55→21:47)
[2020-05-05] MEDS: FAMOTIDINE 20 MG/2 ML IVPush SCH (07:55)
[2020-05-05] MEDS: methylPREDNISolone SOD SUCC 40 MG/ML IVPush SCH (07:55)
[2020-05-05] MEDS: MELATONIN 5 MG TABLET PO SCH (23:15)
[2020-05-06] MEDS: MEROPENEM 1 GM in SODIUM CHLORIDE 0.9% 100 ML IV SCH ×3 (03:08→17:19)
[2020-05-06 04:23] LABS: MEAN CORPUSCULAR HEMOGLOBIN 30.1 pg (27.0-34.8); MEAN CORPUSCULAR HGB CONC 32.3 g/dL (32.4-35.8); MEAN CORPUSCULAR VOLUME 93.2 fL (80-100); MEAN PLATELET VOLUME 8.6 fL (7.4-10.4); PLATELET COUNT 188 x10^3/uL (130-400); RED BLOOD COUNT 2.59 x10^6/uL (3.82-5.3)
[2020-05-06 04:24] LABS: ANION GAP 9 mmol/L (5-15); CALCIUM 7.8 mg/dL (8.5-10.1); CHLORIDE 105 mmol/L (98-107); CREATININE 0.79 mg/dL (0.55-1.02)
[2020-05-06 05:33] LABS: MD YES
[2020-05-06 05:36] LABS: BAND#(MANUAL) 0.21 x10^3/uL; BANDS%(MANUAL) 2 % (0-7); EOS#(MANUAL) 0.21 x10^3/uL (0.0-0.4); EOS% (MANUAL) 2 % (1-7); LYMPH#(MANUAL) 0.96 x10^3/uL (1-3.4); LYMPHS% (MANUAL) 9 % (22-44); MONOS#(MANUAL) 0.11 x10^3/uL (0.3-2.7); MONOS% (MANUAL) 1 % (2-9); NRBC % (MANUAL) 5 % (0-1); SEGS% (MANUAL) 86 % (42-75)
[2020-05-06 05:37] LABS: <PLATELET ESTIMATE> ADEQUATE; <PLT MORPHOLOGY> NORMAL PLT MORPH; ANISOCYTOSIS 1+; POLYCHROMASIA 1+
[2020-05-06] MEDS: INSULIN LISPRO 100 UNITS/ML, PEN SQ-INSULIN SCH ×4 (05:43→23:09)
[2020-05-06] MEDS: BISACODYL 10 MG SUPP PR SCH ×2 (07:49→20:58)
[2020-05-06] MEDS: FAMOTIDINE 20 MG/2 ML IVPush SCH (08:23)
[2020-05-06] MEDS: SODIUM CHLORIDE FLUSH 10ML SYR IVF SCH ×2 (08:23→21:00)
[2020-05-06] MEDS: methylPREDNISolone SOD SUCC 40 MG/ML IVPush SCH (08:23)
[2020-05-06] MEDS: FENTANYL PF 100 MCG/2ML IVPush PRN ×2 (15:39→20:59)
[2020-05-06] MEDS: MELATONIN 5 MG TABLET PO SCH (20:59)
[2020-05-07] MEDS: MEROPENEM 1 GM in SODIUM CHLORIDE 0.9% 100 ML IV SCH ×3 (01:23→18:00)
[2020-05-07] MEDS: FENTANYL PF 100 MCG/2ML IVPush PRN (01:25)
[2020-05-07] MEDS: MIDAZOLAM HCL 50 MG in SODIUM CHLORIDE 0.9% 40 ML IV PRN ×2 (04:55→20:52)
[2020-05-07] MEDS: INSULIN LISPRO 100 UNITS/ML, PEN SQ-INSULIN SCH ×4 (04:56→23:30)
[2020-05-07 07:43] LABS: MEAN CORPUSCULAR HEMOGLOBIN 30.5 pg (27.0-34.8); MEAN CORPUSCULAR HGB CONC 32.8 g/dL (32.4-35.8); MEAN CORPUSCULAR VOLUME 93.1 fL (80-100); MEAN PLATELET VOLUME 8.4 fL (7.4-10.4); PLATELET COUNT 213 x10^3/uL (130-400); RED BLOOD COUNT 2.59 x10^6/uL (3.82-5.3); RED CELL DISTRIBUTION WIDTH 21.4 % (9.6-15.2)
[2020-05-07 07:54] LABS: ANION GAP 9 mmol/L (5-15); CALCIUM 8.3 mg/dL (8.5-10.1); CHLORIDE 103 mmol/L (98-107)
[2020-05-07 08:08] LABS: MD YES
[2020-05-07 08:10] LABS: ANISOCYTOSIS 1+; BAND#(MANUAL) 0.67 x10^3/uL; BANDS%(MANUAL) 7 % (0-7); EOS% (MANUAL) 1 % (1-7); LYMPH#(MANUAL) 1.33 x10^3/uL (1-3.4); LYMPHS% (MANUAL) 14 % (22-44); MONOS#(MANUAL) 0.19 x10^3/uL (0.3-2.7); MONOS% (MANUAL) 2 % (2-9); MYELOCYTES% (MANUAL) 1 % (0-0); NRBC % (MANUAL) 1 % (0-1); POLYCHROMASIA 1+; SEG#(MANUAL) 7.13 x10^3/uL (1.8-6.8); SEGS% (MANUAL) 75 % (42-75)
[2020-05-07 08:11] LABS: <PLATELET ESTIMATE> ADEQUATE; <PLT MORPHOLOGY> NORMAL PLT MORPH; STOMATOCYTES 1+
[2020-05-07] MEDS: BISACODYL 10 MG SUPP PR SCH ×2 (09:00→20:22)
[2020-05-07] MEDS: SODIUM CHLORIDE FLUSH 10ML SYR IVF SCH ×2 (09:24→20:54)
[2020-05-07] MEDS: methylPREDNISolone SOD SUCC 40 MG/ML IVPush SCH (09:24)
[2020-05-07] MEDS: FAMOTIDINE 20 MG/2 ML IVPush SCH (09:24)
[2020-05-07] MEDS: MELATONIN 5 MG TABLET PO SCH (20:52)
[2020-05-08] MEDS: MEROPENEM 1 GM in SODIUM CHLORIDE 0.9% 100 ML IV SCH ×3 (02:24→18:20)
[2020-05-08] MEDS: FENTANYL PF 100 MCG/2ML IVPush PRN (02:25)
[2020-05-08 05:12] LABS: ANION GAP 7 mmol/L (5-15); CALCIUM 8.5 mg/dL (8.5-10.1); CHLORIDE 104 mmol/L (98-107); CREATININE 0.66 mg/dL (0.55-1.02); TRIGLYCERIDES 360 mg/dL (50-200)
[2020-05-08 05:51] LABS: MEAN CORPUSCULAR HGB CONC 32.6 g/dL (32.4-35.8); MEAN CORPUSCULAR VOLUME 91.9 fL (80-100); PLATELET COUNT 458 x10^3/uL (130-400); RED BLOOD COUNT 2.78 x10^6/uL (3.82-5.3); RED CELL DISTRIBUTION WIDTH 20.7 % (9.6-15.2)
[2020-05-08 05:52] LABS: MD YES
[2020-05-08] MEDS: INSULIN LISPRO 100 UNITS/ML, PEN SQ-INSULIN SCH ×3 (05:57→18:00)
[2020-05-08 06:11] LABS: BAND#(MANUAL) 0.38 x10^3/uL; BANDS%(MANUAL) 4 % (0-7); EOS% (MANUAL) 1 % (1-7); LYMPH#(MANUAL) 0.76 x10^3/uL (1-3.4); LYMPHS% (MANUAL) 8 % (22-44); MONOS#(MANUAL) 0.48 x10^3/uL (0.3-2.7); MONOS% (MANUAL) 5 % (2-9); NRBC % (MANUAL) 1 % (0-1); SEG#(MANUAL) 7.79 x10^3/uL (1.8-6.8); SEGS% (MANUAL) 82 % (42-75)
[2020-05-08 06:12] LABS: ANISOCYTOSIS 1+; POLYCHROMASIA 1+; STOMATOCYTES 1+
[2020-05-08 06:13] LABS: <PLATELET ESTIMATE> INCREASED; <PLT MORPHOLOGY> NORMAL PLT MORPH
[2020-05-08 06:46] LABS: MEAN PLATELET VOLUME 8.4 fL (7.4-10.4)
[2020-05-08] MEDS: BISACODYL 10 MG SUPP PR SCH ×2 (08:53→20:15)
[2020-05-08] MEDS: metFORMIN 500 MG TABLET PO SCH ×2 (08:53→18:20)
[2020-05-08] MEDS: FAMOTIDINE 20 MG/2 ML IVPush SCH (08:53)
[2020-05-08] MEDS: SODIUM CHLORIDE FLUSH 10ML SYR IVF SCH ×2 (08:54→20:15)
[2020-05-08] MEDS: MELATONIN 5 MG TABLET PO SCH (20:15)
[2020-05-09] MEDS: INSULIN LISPRO 100 UNITS/ML, PEN SQ-INSULIN SCH ×4 (00:21→17:16)
[2020-05-09 04:12] VITALS: BP 120/69
[2020-05-09 07:20] LABS: ANION GAP 10 mmol/L (5-15); CALCIUM 8.2 mg/dL (8.5-10.1); CHLORIDE 100 mmol/L (98-107); CREATININE 0.67 mg/dL (0.55-1.02)
[2020-05-09 07:34] LABS: MEAN CORPUSCULAR HEMOGLOBIN 30.5 pg (27.0-34.8); MEAN CORPUSCULAR VOLUME 92.3 fL (80-100); MEAN PLATELET VOLUME 7.7 fL (7.4-10.4); PLATELET COUNT 286 x10^3/uL (130-400); RED BLOOD COUNT 2.87 x10^6/uL (3.82-5.3); RED CELL DISTRIBUTION WIDTH 20.6 % (9.6-15.2)
[2020-05-09 07:35] LABS: BASOPHILS % (AUTO) 0 % (0-1); EOSINOPHILS # (AUTO) 0.06 x10^3/uL (0-0.4); EOSINOPHILS % (AUTO) 1 % (1-7); LYMPHOCYTES # (AUTO) 0.53 x10^3/uL (1-3.4); LYMPHOCYTES % (AUTO) 5 % (22-44); MD SCAN; MONOCYTES # (AUTO) 0.72 x10^3/uL (0.2-0.8); MONOCYTES % (AUTO) 7 % (2-9); NEUTROPHILS # (AUTO) 9.24 x10^3/uL (1.8-6.8); NEUTROPHILS % (AUTO) 88 % (42-75)
[2020-05-09] MEDS: metFORMIN 500 MG TABLET PO SCH ×2 (07:44→17:15)
[2020-05-09] MEDS: FAMOTIDINE 20 MG/2 ML IVPush SCH (07:44)
[2020-05-09] MEDS: INSULIN GLARGINE 100 UNITS/ML, PEN SQ-INSULIN SCH ×2 (07:44→21:34)
[2020-05-09] MEDS: SODIUM CHLORIDE FLUSH 10ML SYR IVF SCH ×2 (07:45→21:30)
[2020-05-09] MEDS: BISACODYL 10 MG SUPP PR SCH ×2 (07:45→20:16)
[2020-05-09] MEDS: MELATONIN 5 MG TABLET PO SCH (21:30)
[2020-05-10] MEDS: INSULIN LISPRO 100 UNITS/ML, PEN SQ-INSULIN SCH ×5 (00:32→23:56)
[2020-05-10 04:22] VITALS: BP 111/66
[2020-05-10 04:52] LABS: BASOPHILS # (AUTO) 0.03 x10^3/uL (0-0.1); BASOPHILS % (AUTO) 0 % (0-1); EOSINOPHILS # (AUTO) 0.07 x10^3/uL (0-0.4); EOSINOPHILS % (AUTO) 1 % (1-7); LYMPHOCYTES # (AUTO) 0.66 x10^3/uL (1-3.4); LYMPHOCYTES % (AUTO) 8 % (22-44); MD NO; MEAN CORPUSCULAR HEMOGLOBIN 30.9 pg (27.0-34.8); MEAN CORPUSCULAR HGB CONC 33.6 g/dL (32.4-35.8); MEAN CORPUSCULAR VOLUME 92.1 fL (80-100); MEAN PLATELET VOLUME 8.1 fL (7.4-10.4); MONOCYTES # (AUTO) 0.26 x10^3/uL (0.2-0.8); MONOCYTES % (AUTO) 3 % (2-9); NEUTROPHILS # (AUTO) 7.48 x10^3/uL (1.8-6.8); NEUTROPHILS % (AUTO) 88 % (42-75); PLATELET COUNT 280 x10^3/uL (130-400); RED BLOOD COUNT 2.85 x10^6/uL (3.82-5.3); RED CELL DISTRIBUTION WIDTH 20.2 % (9.6-15.2)
[2020-05-10 05:02] LABS: ALBUMIN 2.1 g/dL (3.4-5.0); ANION GAP 8 mmol/L (5-15); CALCIUM 8.3 mg/dL (8.5-10.1); CHLORIDE 101 mmol/L (98-107)
[2020-05-10 05:05] LABS: ALANINE AMINOTRANSFERASE 28 U/L (12-78); ALKALINE PHOSPHATASE 76 U/L (45-117); BILIRUBIN,TOTAL 0.7 mg/dL (0.2-1.0); CREATININE 0.62 mg/dL (0.55-1.02); TOTAL PROTEIN 5.7 g/dL (6.4-8.2)
[2020-05-10] MEDS ORDERED: INSULIN GLARGINE 100 UNITS/ML, PEN SQ-INSULIN SCH (09:00)
[2020-05-10] MEDS ORDERED: QUETIAPINE 25MG TABLET PO PRN (09:30)
[2020-05-10] MEDS: SODIUM CHLORIDE FLUSH 10ML SYR IVF SCH ×2 (09:56→20:27)
[2020-05-10] MEDS: metFORMIN 500 MG TABLET PO SCH ×2 (09:56→17:47)
[2020-05-10] MEDS: FAMOTIDINE 20 MG/2 ML IVPush SCH (09:56)
[2020-05-10] MEDS: QUETIAPINE 25MG TABLET PO SCH ×3 (09:56→20:26)
[2020-05-10 11:55] VITALS: BP 100/67
--- NOTE | 2020-05-10 13:05 | NUR ---
REC: NPO WITH ONGOING NG TUBE Addendum: 05/10/20 at [address] Amended: Links added.
[2020-05-10 19:19] VITALS: BP 105/64
[2020-05-10] MEDS: MELATONIN 5 MG TABLET PO SCH (20:27)
[2020-05-10] MEDS: INSULIN GLARGINE 100 UNITS/ML, PEN SQ-INSULIN SCH (20:28)
[2020-05-11] VITALS: BP 99/66
[2020-05-11] MEDS: INSULIN LISPRO 100 UNITS/ML, PEN SQ-INSULIN SCH ×3 (05:58→17:53)
[2020-05-11 07:05] VITALS: BP 104/70
[2020-05-11] MEDS: INSULIN GLARGINE 100 UNITS/ML, PEN SQ-INSULIN SCH ×2 (08:59→20:12)
[2020-05-11] MEDS: QUETIAPINE 25MG TABLET PO SCH ×3 (09:00→20:13)
[2020-05-11] MEDS: metFORMIN 500 MG TABLET PO SCH ×2 (09:00→16:59)
[2020-05-11 12:12] VITALS: BP 102/66
[2020-05-11] MEDS: FAMOTIDINE 20 MG/2 ML IVPush SCH (14:10)
[2020-05-11] MEDS: SODIUM CHLORIDE FLUSH 10ML SYR IVF SCH ×2 (14:10→20:12)
[2020-05-11 19:02] VITALS: BP 101/68
[2020-05-11] MEDS: MELATONIN 5 MG TABLET PO SCH (20:12)
[2020-05-12] MEDS: INSULIN LISPRO 100 UNITS/ML, PEN SQ-INSULIN SCH ×4 (00:26→17:23)
[2020-05-12 00:31] VITALS: BP 112/73
[2020-05-12 07:00] VITALS: BP 110/75
[2020-05-12] MEDS: QUETIAPINE 25MG TABLET PO SCH ×3 (07:56→20:55)
[2020-05-12] MEDS: INSULIN GLARGINE 100 UNITS/ML, PEN SQ-INSULIN SCH ×2 (07:56→21:54)
[2020-05-12] MEDS: FAMOTIDINE 20 MG/2 ML IVPush SCH (07:56)
[2020-05-12] MEDS: SODIUM CHLORIDE FLUSH 10ML SYR IVF SCH ×2 (07:57→20:54)
[2020-05-12] MEDS: metFORMIN 500 MG TABLET PO SCH ×2 (08:00→17:00)
[2020-05-12 12:37] VITALS: BP 112/68
[2020-05-12 15:37] LABS: ALANINE AMINOTRANSFERASE 29 U/L (12-78); ALBUMIN 2.2 g/dL (3.4-5.0); ANION GAP 8 mmol/L (5-15); CALCIUM 8.8 mg/dL (8.5-10.1); CHLORIDE 101 mmol/L (98-107); CREATININE 0.64 mg/dL (0.55-1.02)
[2020-05-12 15:40] LABS: ALKALINE PHOSPHATASE 86 U/L (45-117); BILIRUBIN,TOTAL 0.6 mg/dL (0.2-1.0); TOTAL PROTEIN 5.9 g/dL (6.4-8.2)
[2020-05-12 15:42] LABS: MICROSCOPIC INDICATED
--- NOTE | 2020-05-12 17:01 | NUR ---
Green Wade, daily x3 Arm punches, 3 x 10 Leg kicks, 3 x 10 Glut squeezes, 3 x 10 Addendum: 05/12/20 at 1711 by Tabatha Back OT Amended: Links added.
[2020-05-12 20:42] VITALS: BP 118/81
[2020-05-12] MEDS: MELATONIN 5 MG TABLET PO SCH (20:54)
[2020-05-13] MEDS: INSULIN LISPRO 100 UNITS/ML, PEN SQ-INSULIN SCH ×4 (00:02→17:23)
[2020-05-13 00:03] VITALS: BP 108/70
[2020-05-13 01:19] VITALS: BP 112/72
[2020-05-13 06:54] VITALS: BP 104/72
[2020-05-13] MEDS: metFORMIN 500 MG TABLET PO SCH ×2 (08:00→17:23)
[2020-05-13] MEDS: QUETIAPINE 25MG TABLET PO SCH ×3 (08:22→20:43)
[2020-05-13] MEDS: FAMOTIDINE 20 MG/2 ML IVPush SCH (08:29)
[2020-05-13] MEDS: SODIUM CHLORIDE FLUSH 10ML SYR IVF SCH ×2 (08:29→20:44)
[2020-05-13] MEDS: INSULIN GLARGINE 100 UNITS/ML, PEN SQ-INSULIN SCH ×2 (08:29→20:44)
[2020-05-13 12:01] VITALS: BP 105/67
[2020-05-13 20:41] VITALS: BP 110/61
[2020-05-13] MEDS: MELATONIN 5 MG TABLET PO SCH (20:43)
[2020-05-14] MEDS: INSULIN LISPRO 100 UNITS/ML, PEN SQ-INSULIN SCH ×5 (00:17→23:21)
[2020-05-14 00:18] VITALS: BP 110/75
[2020-05-14 07:23] VITALS: BP 116/73
[2020-05-14] MEDS: QUETIAPINE 25MG TABLET PO SCH ×3 (10:55→21:14)
[2020-05-14] MEDS: FAMOTIDINE 20 MG/2 ML IVPush SCH (10:55)
[2020-05-14] MEDS: SODIUM CHLORIDE FLUSH 10ML SYR IVF SCH ×2 (10:56→21:14)
[2020-05-14] MEDS: metFORMIN 500 MG TABLET PO SCH ×2 (10:56→17:16)
[2020-05-14] MEDS: INSULIN GLARGINE 100 UNITS/ML, PEN SQ-INSULIN SCH ×2 (11:07→23:20)
[2020-05-14 13:59] VITALS: BP 108/72
[2020-05-14 21:06] VITALS: BP 115/72
[2020-05-14] MEDS: MELATONIN 5 MG TABLET PO SCH (21:13)
[2020-05-15 01:47] VITALS: BP 104/67
[2020-05-15] MEDS: INSULIN LISPRO 100 UNITS/ML, PEN SQ-INSULIN SCH ×4 (05:16→22:46)
[2020-05-15] MEDS: metFORMIN 500 MG TABLET PO SCH ×2 (10:07→17:01)
[2020-05-15] MEDS: QUETIAPINE 25MG TABLET PO SCH ×2 (10:07→20:35)
[2020-05-15] MEDS: FAMOTIDINE 20 MG/2 ML IVPush SCH (10:07)
[2020-05-15] MEDS: SODIUM CHLORIDE FLUSH 10ML SYR IVF SCH ×2 (10:08→20:34)
[2020-05-15] MEDS: INSULIN GLARGINE 100 UNITS/ML, PEN SQ-INSULIN SCH ×2 (10:13→22:46)
[2020-05-15] MEDS: SENNA/DOCUSATE TABLET NG PRN (12:32)
[2020-05-15 14:36] VITALS: BP 117/74
[2020-05-15 18:45] VITALS: BP 111/71
[2020-05-15] MEDS: MELATONIN 5 MG TABLET PO SCH (20:34)
[2020-05-16 00:53] VITALS: BP 128/73
[2020-05-16] MEDS: INSULIN LISPRO 100 UNITS/ML, PEN SQ-INSULIN SCH ×4 (05:06→23:59)
[2020-05-16 05:23] LABS: BASOPHILS # (AUTO) 0.02 x10^3/uL (0-0.1); BASOPHILS % (AUTO) 0 % (0-1); EOSINOPHILS % (AUTO) 0 % (1-7); LYMPHOCYTES # (AUTO) 0.74 x10^3/uL (1-3.4); LYMPHOCYTES % (AUTO) 13 % (22-44); MD NO; MEAN CORPUSCULAR HEMOGLOBIN 30.5 pg (27.0-34.8); MEAN CORPUSCULAR HGB CONC 33.2 g/dL (32.4-35.8); MEAN PLATELET VOLUME 7.3 fL (7.4-10.4); MONOCYTES # (AUTO) 0.45 x10^3/uL (0.2-0.8); MONOCYTES % (AUTO) 8 % (2-9); NEUTROPHILS # (AUTO) 4.71 x10^3/uL (1.8-6.8); NEUTROPHILS % (AUTO) 80 % (42-75); PLATELET COUNT 282 x10^3/uL (130-400); RED BLOOD COUNT 2.79 x10^6/uL (3.82-5.3); RED CELL DISTRIBUTION WIDTH 19.9 % (9.6-15.2)
[2020-05-16 05:35] LABS: ALANINE AMINOTRANSFERASE 23 U/L (12-78); ALBUMIN 2.2 g/dL (3.4-5.0); ANION GAP 5 mmol/L (5-15); CALCIUM 8.6 mg/dL (8.5-10.1); CHLORIDE 98 mmol/L (98-107)
[2020-05-16 05:37] LABS: ALKALINE PHOSPHATASE 92 U/L (45-117); CREATININE 0.52 mg/dL (0.55-1.02); TOTAL PROTEIN 6.2 g/dL (6.4-8.2)
[2020-05-16 08:00] VITALS: BP 120/74
[2020-05-16] MEDS: FAMOTIDINE 20 MG/2 ML IVPush SCH (09:13)
[2020-05-16] MEDS: metFORMIN 500 MG TABLET PO SCH ×2 (09:13→16:35)
[2020-05-16] MEDS: SODIUM CHLORIDE FLUSH 10ML SYR IVF SCH ×2 (09:13→20:30)
[2020-05-16] MEDS: QUETIAPINE 25MG TABLET PO SCH ×3 (09:13→20:30)
[2020-05-16] MEDS: INSULIN GLARGINE 100 UNITS/ML, PEN SQ-INSULIN SCH ×2 (09:15→20:29)
--- NOTE | 2020-05-16 10:51 | NUR ---
Decrease free water flush to 65 ml q4
[2020-05-16 12:11] VITALS: BP 103/66
[2020-05-16] MEDS: ACETAMINOPHEN 650 MG SUPP PR PRN (17:03)
[2020-05-16 18:34] VITALS: BP 114/76
[2020-05-16] MEDS: MELATONIN 5 MG TABLET PO SCH (20:30)
[2020-05-17 00:02] VITALS: BP 103/68
[2020-05-17] MEDS ORDERED: ACETAMINOPHEN 325 MG TABLET PO PRN (05:30)
[2020-05-17] MEDS: INSULIN LISPRO 100 UNITS/ML, PEN SQ-INSULIN SCH ×4 (05:39→23:50)
[2020-05-17 08:00] VITALS: BP 98/62
[2020-05-17 08:55] VITALS: BP 101/67
[2020-05-17] MEDS: SODIUM CHLORIDE FLUSH 10ML SYR IVF SCH ×3 (08:59→20:36)
[2020-05-17] MEDS: FAMOTIDINE 20 MG/2 ML IVPush SCH ×2 (08:59→09:00)
[2020-05-17] MEDS: INSULIN GLARGINE 100 UNITS/ML, PEN SQ-INSULIN SCH ×2 (10:57→20:45)
[2020-05-17] MEDS: QUETIAPINE 25MG TABLET PO SCH ×2 (12:06→20:35)
[2020-05-17] MEDS: metFORMIN 500 MG TABLET PO SCH ×2 (12:06→18:10)
[2020-05-17 12:11] VITALS: BP 110/70
[2020-05-17] MEDS: ACETAMINOPHEN 325 MG TABLET NG PRN ×2 (13:33→20:35)
[2020-05-17 19:19] VITALS: BP 111/72
[2020-05-17] MEDS: MELATONIN 5 MG TABLET PO SCH (20:35)
[2020-05-18 00:23] VITALS: BP 99/67
[2020-05-18] MEDS: INSULIN LISPRO 100 UNITS/ML, PEN SQ-INSULIN SCH ×4 (05:33→23:22)
[2020-05-18] MEDS: QUETIAPINE 25MG TABLET PO SCH ×3 (08:43→22:50)
[2020-05-18] MEDS: FAMOTIDINE 20 MG/2 ML IVPush SCH (08:43)
[2020-05-18] MEDS: metFORMIN 500 MG TABLET PO SCH ×2 (08:44→17:18)
[2020-05-18] MEDS: INSULIN GLARGINE 100 UNITS/ML, PEN SQ-INSULIN SCH ×2 (08:45→23:22)
[2020-05-18] MEDS: SODIUM CHLORIDE FLUSH 10ML SYR IVF SCH ×2 (08:45→23:07)
[2020-05-18 08:51] VITALS: BP 113/68
[2020-05-18 13:38] VITALS: BP 106/71
[2020-05-18 20:06] VITALS: BP 98/59
[2020-05-18] MEDS: ACETAMINOPHEN 325 MG TABLET NG PRN (22:49)
[2020-05-18] MEDS: MELATONIN 5 MG TABLET PO SCH (22:50)
[2020-05-19 02:00] VITALS: BP 101/60
[2020-05-19] MEDS: INSULIN LISPRO 100 UNITS/ML, PEN SQ-INSULIN SCH ×4 (06:08→23:57)
[2020-05-19 07:23] LABS: BASOPHILS # (AUTO) 0.03 x10^3/uL (0-0.1); BASOPHILS % (AUTO) 0 % (0-1); EOSINOPHILS # (AUTO) 0.22 x10^3/uL (0-0.4); EOSINOPHILS % (AUTO) 3 % (1-7); LYMPHOCYTES # (AUTO) 1.15 x10^3/uL (1-3.4); LYMPHOCYTES % (AUTO) 14 % (22-44); MD NO; MEAN CORPUSCULAR HEMOGLOBIN 30.2 pg (27.0-34.8); MEAN CORPUSCULAR HGB CONC 32.3 g/dL (32.4-35.8); MEAN CORPUSCULAR VOLUME 93.4 fL (80-100); MEAN PLATELET VOLUME 7.1 fL (7.4-10.4); MONOCYTES # (AUTO) 0.71 x10^3/uL (0.2-0.8); MONOCYTES % (AUTO) 9 % (2-9); NEUTROPHILS # (AUTO) 5.91 x10^3/uL (1.8-6.8); NEUTROPHILS % (AUTO) 74 % (42-75); PLATELET COUNT 351 x10^3/uL (130-400); RED BLOOD COUNT 3.02 x10^6/uL (3.82-5.3); RED CELL DISTRIBUTION WIDTH 18.3 % (9.6-15.2)
[2020-05-19 07:32] LABS: ALANINE AMINOTRANSFERASE 25 U/L (12-78); ALBUMIN 2.3 g/dL (3.4-5.0); ANION GAP 6 mmol/L (5-15); CALCIUM 8.8 mg/dL (8.5-10.1); CHLORIDE 99 mmol/L (98-107); CREATININE 0.64 mg/dL (0.55-1.02)
[2020-05-19 07:34] LABS: ALKALINE PHOSPHATASE 107 U/L (45-117); BILIRUBIN,TOTAL 0.9 mg/dL (0.2-1.0); TOTAL PROTEIN 6.9 g/dL (6.4-8.2)
[2020-05-19] MEDS: FAMOTIDINE 20 MG/2 ML IVPush SCH ×2 (09:00→11:15)
[2020-05-19] MEDS: SODIUM CHLORIDE FLUSH 10ML SYR IVF SCH ×3 (09:00→21:00)
[2020-05-19] MEDS: QUETIAPINE 25MG TABLET PO SCH ×3 (10:00→20:46)
[2020-05-19] MEDS: INSULIN GLARGINE 100 UNITS/ML, PEN SQ-INSULIN SCH ×2 (10:00→20:46)
[2020-05-19] MEDS: metFORMIN 500 MG TABLET PO SCH (10:00)
[2020-05-19 11:24] VITALS: BP 108/71
[2020-05-19] MEDS ORDERED: DEXTROSE 50%, 50ML SYRINGE IVPush PRN (15:00)
[2020-05-19] MEDS ORDERED: MELATONIN 5 MG TABLET PO PRN (15:00)
[2020-05-19] MEDS ORDERED: DEXTROSE 4 GM TAB.CHEW PO PRN (15:00)
[2020-05-19] MEDS ORDERED: GLUCAGON 1 MG IM PRN (15:00)
[2020-05-19 15:37] VITALS: BP 112/75
[2020-05-19 19:04] VITALS: BP 121/72
[2020-05-19] MEDS: ACETAMINOPHEN 325 MG TABLET PO PRN (20:45)
[2020-05-19] MEDS ORDERED: INSULIN LISPRO 100 UNIT/ML, 3ML VIAL SQ-INSULIN ONE (21:30)
[2020-05-20] VITALS: BP 120/74
[2020-05-20] MEDS: INSULIN LISPRO 100 UNITS/ML, PEN SQ-INSULIN SCH ×4 (06:15→23:44)
[2020-05-20 07:21] VITALS: BP 100/65
[2020-05-20] MEDS: QUETIAPINE 25MG TABLET PO SCH ×3 (08:19→20:09)
[2020-05-20] MEDS: INSULIN GLARGINE 100 UNITS/ML, PEN SQ-INSULIN SCH ×2 (08:21→20:11)
[2020-05-20] MEDS: SODIUM CHLORIDE FLUSH 10ML SYR IVF SCH ×4 (08:28→20:10)
[2020-05-20 13:46] VITALS: BP 107/70
--- NOTE | 2020-05-20 16:43 | NUR ---
PUREE/NTL DIET; HOLD PO WITH ANY S/SX CONCERNING FOR ASPIRATION Addendum: 05/20/20 at [address] Amended: Links added.
[2020-05-20] MEDS: BISACODYL 10 MG SUPP PR PRN (17:41)
[2020-05-20 18:32] VITALS: BP 118/71
[2020-05-21 00:34] VITALS: BP 117/64
[2020-05-21 05:26] LABS: ALANINE AMINOTRANSFERASE 27 U/L (12-78); ALBUMIN 2.2 g/dL (3.4-5.0); ANION GAP 6 mmol/L (5-15); BASOPHILS # (AUTO) 0.04 x10^3/uL (0-0.1); BASOPHILS % (AUTO) 0 % (0-1); CALCIUM 8.8 mg/dL (8.5-10.1); CHLORIDE 98 mmol/L (98-107); CREATININE 0.63 mg/dL (0.55-1.02); EOSINOPHILS # (AUTO) 0.16 x10^3/uL (0-0.4); EOSINOPHILS % (AUTO) 2 % (1-7); LYMPHOCYTES # (AUTO) 1.42 x10^3/uL (1-3.4); LYMPHOCYTES % (AUTO) 15 % (22-44); MD NO; MEAN CORPUSCULAR HEMOGLOBIN 30.2 pg (27.0-34.8); MEAN CORPUSCULAR HGB CONC 32.4 g/dL (32.4-35.8); MEAN CORPUSCULAR VOLUME 93.2 fL (80-100); MEAN PLATELET VOLUME 7.5 fL (7.4-10.4); MONOCYTES # (AUTO) 0.72 x10^3/uL (0.2-0.8); MONOCYTES % (AUTO) 8 % (2-9); NEUTROPHILS # (AUTO) 7.14 x10^3/uL (1.8-6.8); NEUTROPHILS % (AUTO) 75 % (42-75); PLATELET COUNT 414 x10^3/uL (130-400); RED BLOOD COUNT 2.83 x10^6/uL (3.82-5.3); RED CELL DISTRIBUTION WIDTH 18.5 % (9.6-15.2)
[2020-05-21 05:28] LABS: ALKALINE PHOSPHATASE 110 U/L (45-117); BILIRUBIN,TOTAL 0.8 mg/dL (0.2-1.0)
[2020-05-21] MEDS: INSULIN LISPRO 100 UNITS/ML, PEN SQ-INSULIN SCH ×3 (05:58→17:17)
[2020-05-21 07:05] VITALS: BP 114/71
[2020-05-21] MEDS: SODIUM CHLORIDE FLUSH 10ML SYR IVF SCH ×4 (07:48→21:15)
[2020-05-21] MEDS: LACTULOSE 20 GM/30 ML UDC NG PRN (08:08)
[2020-05-21] MEDS: BISACODYL 10 MG SUPP PR SCH ×3 (08:08→21:11)
[2020-05-21] MEDS: QUETIAPINE 25MG TABLET PO SCH ×3 (08:08→21:11)
[2020-05-21] MEDS: INSULIN GLARGINE 100 UNITS/ML, PEN SQ-INSULIN SCH ×2 (08:09→21:18)
[2020-05-21 12:20] VITALS: BP 131/83
--- NOTE | 2020-05-21 14:29 | NUR ---
JOYA/BRENTON BY ZIGGY ONLY Addendum: 05/21/20 at [address] Amended: Links added.
[2020-05-21] MEDS: SENNA/DOCUSATE TABLET NG PRN (17:24)
[2020-05-21 19:37] VITALS: BP 137/84
[2020-05-21] MEDS ORDERED: INSULIN LISPRO 100 UNIT/ML, 3ML VIAL SQ-INSULIN ONE (21:00)
[2020-05-21] MEDS ORDERED: INSULIN LISPRO 100 UNITS/ML, PEN SQ-INSULIN ONE (21:30)
[2020-05-22] MEDS: INSULIN LISPRO 100 UNITS/ML, PEN SQ-INSULIN SCH ×4 (00:13→18:22)
[2020-05-22 00:14] VITALS: BP 107/71
[2020-05-22 06:17] LABS: BASOPHILS # (AUTO) 0.04 x10^3/uL (0-0.1); BASOPHILS % (AUTO) 0 % (0-1); EOSINOPHILS # (AUTO) 0.16 x10^3/uL (0-0.4); EOSINOPHILS % (AUTO) 2 % (1-7); LYMPHOCYTES # (AUTO) 1.54 x10^3/uL (1-3.4); LYMPHOCYTES % (AUTO) 15 % (22-44); MD NO; MEAN CORPUSCULAR HEMOGLOBIN 32.9 pg (27.0-34.8); MEAN CORPUSCULAR HGB CONC 34.8 g/dL (32.4-35.8); MEAN CORPUSCULAR VOLUME 94.7 fL (80-100); MEAN PLATELET VOLUME 7.8 fL (7.4-10.4); MONOCYTES # (AUTO) 0.94 x10^3/uL (0.2-0.8); MONOCYTES % (AUTO) 9 % (2-9); NEUTROPHILS # (AUTO) 7.87 x10^3/uL (1.8-6.8); NEUTROPHILS % (AUTO) 75 % (42-75); PLATELET COUNT 491 x10^3/uL (130-400); RED BLOOD COUNT 2.79 x10^6/uL (3.82-5.3); RED CELL DISTRIBUTION WIDTH 17.6 % (9.6-15.2)
[2020-05-22 06:26] LABS: ANION GAP 6 mmol/L (5-15); CALCIUM 8.9 mg/dL (8.5-10.1); CHLORIDE 98 mmol/L (98-107)
[2020-05-22 06:27] LABS: CREATININE 0.68 mg/dL (0.55-1.02)
[2020-05-22 07:06] VITALS: BP 106/68
[2020-05-22] MEDS: SODIUM CHLORIDE FLUSH 10ML SYR IVF SCH ×4 (08:21→22:36)
[2020-05-22] MEDS: QUETIAPINE 25MG TABLET PO SCH ×3 (08:22→22:37)
[2020-05-22] MEDS: INSULIN GLARGINE 100 UNITS/ML, PEN SQ-INSULIN SCH (08:25)
[2020-05-22 12:28] VITALS: BP 105/68
[2020-05-22] MEDS ORDERED: BISACODYL 10 MG SUPP PR PRN (17:30)
[2020-05-22] MEDS ORDERED: INSULIN GLARGINE 100 UNITS/ML, PEN SQ-INSULIN SCH (22:22)
[2020-05-23] MEDS: INSULIN LISPRO 100 UNITS/ML, PEN SQ-INSULIN SCH ×4 (00:40→18:12)
[2020-05-23 01:18] VITALS: BP 104/66
[2020-05-23 05:36] LABS: ANION GAP 5 mmol/L (5-15); CALCIUM 9.3 mg/dL (8.5-10.1); CHLORIDE 101 mmol/L (98-107); CREATININE 0.66 mg/dL (0.55-1.02)
[2020-05-23 06:39] LABS: BASOPHILS # (AUTO) 0.03 x10^3/uL (0-0.1); BASOPHILS % (AUTO) 0 % (0-1); EOSINOPHILS # (AUTO) 0.08 x10^3/uL (0-0.4); EOSINOPHILS % (AUTO) 1 % (1-7); LYMPHOCYTES # (AUTO) 1.47 x10^3/uL (1-3.4); LYMPHOCYTES % (AUTO) 16 % (22-44); MD NO; MEAN CORPUSCULAR HEMOGLOBIN 30.1 pg (27.0-34.8); MEAN CORPUSCULAR VOLUME 94.2 fL (80-100); MEAN PLATELET VOLUME 7.3 fL (7.4-10.4); MONOCYTES # (AUTO) 0.68 x10^3/uL (0.2-0.8); MONOCYTES % (AUTO) 7 % (2-9); NEUTROPHILS # (AUTO) 6.82 x10^3/uL (1.8-6.8); NEUTROPHILS % (AUTO) 75 % (42-75); PLATELET COUNT 518 x10^3/uL (130-400); RED BLOOD COUNT 2.82 x10^6/uL (3.82-5.3); RED CELL DISTRIBUTION WIDTH 18.4 % (9.6-15.2)
[2020-05-23 07:02] VITALS: BP 98/62
[2020-05-23] MEDS: INSULIN GLARGINE 100 UNITS/ML, PEN SQ-INSULIN SCH ×2 (08:42→20:34)
[2020-05-23] MEDS: SODIUM CHLORIDE FLUSH 10ML SYR IVF SCH ×2 (08:43→20:34)
[2020-05-23] MEDS: QUETIAPINE 25MG TABLET PO SCH ×3 (08:47→21:45)
[2020-05-23] MEDS ORDERED: INSULIN GLARGINE 100 UNITS/ML, PEN SQ-INSULIN SCH (09:00)
[2020-05-23] MEDS ORDERED: SENNA/DOCUSATE TABLET NG PRN (11:00)
[2020-05-23] MEDS ORDERED: TAMSULOSIN 0.4 MG CAP.ER.24H PO SCH (11:00)
[2020-05-23] MEDS: TAMSULOSIN 0.4 MG CAP.ER.24H PO SCH ×2 (11:05→21:46)
[2020-05-24] MEDS: INSULIN LISPRO 100 UNITS/ML, PEN SQ-INSULIN SCH ×4 (00:20→18:06)
[2020-05-24 01:45] VITALS: BP 102/66
[2020-05-24 07:09] LABS: BASOPHILS # (AUTO) 0.03 x10^3/uL (0-0.1); BASOPHILS % (AUTO) 0 % (0-1); EOSINOPHILS # (AUTO) 0.15 x10^3/uL (0-0.4); EOSINOPHILS % (AUTO) 2 % (1-7); LYMPHOCYTES # (AUTO) 1.64 x10^3/uL (1-3.4); LYMPHOCYTES % (AUTO) 20 % (22-44); MD NO; MEAN CORPUSCULAR HGB CONC 32.6 g/dL (32.4-35.8); MEAN CORPUSCULAR VOLUME 91.9 fL (80-100); MEAN PLATELET VOLUME 7.4 fL (7.4-10.4); MONOCYTES # (AUTO) 0.58 x10^3/uL (0.2-0.8); MONOCYTES % (AUTO) 7 % (2-9); NEUTROPHILS # (AUTO) 5.85 x10^3/uL (1.8-6.8); NEUTROPHILS % (AUTO) 71 % (42-75); PLATELET COUNT 499 x10^3/uL (130-400); RED BLOOD COUNT 2.81 x10^6/uL (3.82-5.3); RED CELL DISTRIBUTION WIDTH 18.3 % (9.6-15.2)
[2020-05-24 07:21] LABS: ANION GAP 6 mmol/L (5-15); CALCIUM 9.1 mg/dL (8.5-10.1); CHLORIDE 100 mmol/L (98-107); CREATININE 0.63 mg/dL (0.55-1.02)
[2020-05-24 08:30] VITALS: BP 119/70
[2020-05-24] MEDS: TAMSULOSIN 0.4 MG CAP.ER.24H PO SCH ×2 (09:20→21:22)
[2020-05-24] MEDS: QUETIAPINE 25MG TABLET PO SCH ×3 (09:20→21:22)
[2020-05-24] MEDS: INSULIN GLARGINE 100 UNITS/ML, PEN SQ-INSULIN SCH ×2 (09:21→21:22)
[2020-05-24] MEDS: SODIUM CHLORIDE FLUSH 10ML SYR IVF SCH ×2 (09:21→21:23)
[2020-05-24 14:52] VITALS: BP 102/66
[2020-05-24 20:00] VITALS: BP 124/71
[2020-05-24] MEDS: ACETAMINOPHEN 325 MG TABLET PO PRN (21:22)
[2020-05-25] MEDS: INSULIN LISPRO 100 UNITS/ML, PEN SQ-INSULIN SCH ×5 (00:41→23:52)
[2020-05-25 01:14] VITALS: BP 123/73
[2020-05-25 03:12] VITALS: BP 103/70
[2020-05-25 07:42] VITALS: BP 114/69
[2020-05-25] MEDS: TAMSULOSIN 0.4 MG CAP.ER.24H PO SCH ×2 (08:37→20:41)
[2020-05-25] MEDS: INSULIN GLARGINE 100 UNITS/ML, PEN SQ-INSULIN SCH ×2 (08:37→20:40)
[2020-05-25] MEDS: QUETIAPINE 25MG TABLET PO SCH ×3 (08:37→20:41)
[2020-05-25] MEDS: SODIUM CHLORIDE FLUSH 10ML SYR IVF SCH ×2 (08:38→20:41)
[2020-05-25 14:50] VITALS: BP 104/59
[2020-05-25] MEDS ORDERED: GADOTERATE 7.5 MMOL/15 ML SYR ONE (19:07)
[2020-05-25 20:54] VITALS: BP 109/67
[2020-05-26 00:22] VITALS: BP 124/76
[2020-05-26 05:27] LABS: ANION GAP 6 mmol/L (5-15); CALCIUM 8.3 mg/dL (8.5-10.1); CHLORIDE 99 mmol/L (98-107)
[2020-05-26 05:28] LABS: CREATININE 0.58 mg/dL (0.55-1.02)
[2020-05-26] MEDS: INSULIN LISPRO 100 UNITS/ML, PEN SQ-INSULIN SCH ×3 (06:05→17:05)
[2020-05-26 06:14] LABS: BASOPHILS # (AUTO) 0.04 x10^3/uL (0-0.1); BASOPHILS % (AUTO) 0 % (0-1); EOSINOPHILS # (AUTO) 0.06 x10^3/uL (0-0.4); EOSINOPHILS % (AUTO) 1 % (1-7); LYMPHOCYTES % (AUTO) 18 % (22-44); MD SCAN; MEAN CORPUSCULAR HEMOGLOBIN 33.7 pg (27.0-34.8); MEAN CORPUSCULAR HGB CONC 34.5 g/dL (32.4-35.8); MEAN CORPUSCULAR VOLUME 97.7 fL (80-100); MEAN PLATELET VOLUME 7.2 fL (7.4-10.4); MONOCYTES # (AUTO) 0.59 x10^3/uL (0.2-0.8); MONOCYTES % (AUTO) 6 % (2-9); NEUTROPHILS # (AUTO) 7.11 x10^3/uL (1.8-6.8); NEUTROPHILS % (AUTO) 75 % (42-75); PLATELET COUNT 542 x10^3/uL (130-400); RED BLOOD COUNT 2.35 x10^6/uL (3.82-5.3); RED CELL DISTRIBUTION WIDTH 18.2 % (9.6-15.2)
[2020-05-26 07:30] VITALS: BP 121/72
[2020-05-26] MEDS: TAMSULOSIN 0.4 MG CAP.ER.24H PO SCH ×2 (10:08→21:37)
[2020-05-26] MEDS: INSULIN GLARGINE 100 UNITS/ML, PEN SQ-INSULIN SCH ×2 (10:08→21:38)
[2020-05-26] MEDS: SODIUM CHLORIDE FLUSH 10ML SYR IVF SCH ×2 (10:09→21:38)
[2020-05-26] MEDS: QUETIAPINE 25MG TABLET PO SCH ×3 (10:09→21:37)
[2020-05-26 12:29] VITALS: BP 118/76
[2020-05-26 16:17] LABS: MICROSCOPIC INDICATED
[2020-05-26 19:27] VITALS: BP 116/71
[2020-05-26] MEDS: ACETAMINOPHEN 325 MG TABLET PO PRN (22:03)
[2020-05-27] MEDS: INSULIN LISPRO 100 UNITS/ML, PEN SQ-INSULIN SCH ×5 (00:23→23:12)
[2020-05-27 00:24] VITALS: BP 93/58
[2020-05-27 06:08] LABS: BASOPHILS # (AUTO) 0.03 x10^3/uL (0-0.1); BASOPHILS % (AUTO) 0 % (0-1); EOSINOPHILS # (AUTO) 0.23 x10^3/uL (0-0.4); EOSINOPHILS % (AUTO) 3 % (1-7); LYMPHOCYTES # (AUTO) 1.86 x10^3/uL (1-3.4); LYMPHOCYTES % (AUTO) 22 % (22-44); MD NO; MEAN CORPUSCULAR HEMOGLOBIN 32.4 pg (27.0-34.8); MEAN CORPUSCULAR HGB CONC 34.2 g/dL (32.4-35.8); MEAN CORPUSCULAR VOLUME 94.7 fL (80-100); MEAN PLATELET VOLUME 7.1 fL (7.4-10.4); MONOCYTES # (AUTO) 0.65 x10^3/uL (0.2-0.8); MONOCYTES % (AUTO) 8 % (2-9); NEUTROPHILS # (AUTO) 5.66 x10^3/uL (1.8-6.8); NEUTROPHILS % (AUTO) 67 % (42-75); PLATELET COUNT 549 x10^3/uL (130-400); RED BLOOD COUNT 2.73 x10^6/uL (3.82-5.3); RED CELL DISTRIBUTION WIDTH 18.1 % (9.6-15.2)
[2020-05-27 06:10] LABS: ANION GAP 7 mmol/L (5-15); CALCIUM 9.2 mg/dL (8.5-10.1); CHLORIDE 102 mmol/L (98-107); CREATININE 0.48 mg/dL (0.55-1.02)
[2020-05-27 08:47] VITALS: BP 113/74
[2020-05-27] MEDS: SODIUM CHLORIDE FLUSH 10ML SYR IVF SCH ×2 (09:13→23:13)
[2020-05-27] MEDS: QUETIAPINE 25MG TABLET PO SCH ×3 (09:14→23:13)
[2020-05-27] MEDS: TAMSULOSIN 0.4 MG CAP.ER.24H PO SCH ×2 (09:14→23:13)
[2020-05-27] MEDS: INSULIN GLARGINE 100 UNITS/ML, PEN SQ-INSULIN SCH ×2 (09:14→23:12)
[2020-05-27 12:12] VITALS: BP 103/66
--- NOTE | 2020-05-27 15:29 | NUR ---
Green sheet issued Addendum: 05/27/20 at 1530 by Ole Xiao PT Amended: Links added.
[2020-05-27 20:15] VITALS: BP 111/71
[2020-05-27] MEDS: ACETAMINOPHEN 325 MG TABLET PO PRN (23:20)
[2020-05-28 00:14] VITALS: BP 116/73
[2020-05-28 06:38] VITALS: BP 123/72
[2020-05-28] MEDS: INSULIN LISPRO 100 UNITS/ML, PEN SQ-INSULIN SCH ×4 (07:00→21:14)
[2020-05-28] MEDS: TAMSULOSIN 0.4 MG CAP.ER.24H PO SCH ×2 (08:24→21:06)
[2020-05-28] MEDS: QUETIAPINE 25MG TABLET PO SCH ×3 (08:24→21:06)
[2020-05-28] MEDS: SODIUM CHLORIDE FLUSH 10ML SYR IVF SCH ×2 (08:24→21:06)
[2020-05-28] MEDS: INSULIN GLARGINE 100 UNITS/ML, PEN SQ-INSULIN SCH (08:27)
[2020-05-28 12:20] VITALS: BP 96/57
[2020-05-28 12:49] VITALS: BP 115/67
[2020-05-28] MEDS: ACETAMINOPHEN 325 MG TABLET PO PRN (15:50)
[2020-05-28 18:57] VITALS: BP 115/70
[2020-05-28] MEDS ORDERED: INSULIN GLARGINE 100 UNITS/ML, PEN SQ-INSULIN SCH (21:00)
[2020-05-29 01:22] VITALS: BP 124/74
[2020-05-29 05:54] LABS: BASOPHILS # (AUTO) 0.04 x10^3/uL (0-0.1); BASOPHILS % (AUTO) 1 % (0-1); EOSINOPHILS # (AUTO) 0.26 x10^3/uL (0-0.4); EOSINOPHILS % (AUTO) 3 % (1-7); LYMPHOCYTES # (AUTO) 2.05 x10^3/uL (1-3.4); LYMPHOCYTES % (AUTO) 24 % (22-44); MD NO; MEAN CORPUSCULAR HEMOGLOBIN 29.7 pg (27.0-34.8); MEAN CORPUSCULAR HGB CONC 31.9 g/dL (32.4-35.8); MEAN CORPUSCULAR VOLUME 93.1 fL (80-100); MONOCYTES # (AUTO) 0.61 x10^3/uL (0.2-0.8); MONOCYTES % (AUTO) 7 % (2-9); NEUTROPHILS # (AUTO) 5.57 x10^3/uL (1.8-6.8); NEUTROPHILS % (AUTO) 65 % (42-75); PLATELET COUNT 625 x10^3/uL (130-400); RED BLOOD COUNT 3.09 x10^6/uL (3.82-5.3); RED CELL DISTRIBUTION WIDTH 18.2 % (9.6-15.2)
[2020-05-29 06:04] LABS: ALBUMIN 2.5 g/dL (3.4-5.0); ANION GAP 7 mmol/L (5-15); CALCIUM 8.9 mg/dL (8.5-10.1); CHLORIDE 104 mmol/L (98-107)
[2020-05-29 06:07] LABS: ALANINE AMINOTRANSFERASE 20 U/L (12-78); ALKALINE PHOSPHATASE 90 U/L (45-117); BILIRUBIN,TOTAL 0.5 mg/dL (0.2-1.0); CREATININE 0.54 mg/dL (0.55-1.02); TOTAL PROTEIN 7.2 g/dL (6.4-8.2)
[2020-05-29] MEDS: INSULIN LISPRO 100 UNITS/ML, PEN SQ-INSULIN SCH ×4 (07:00→21:01)
[2020-05-29 07:30] VITALS: BP 122/71
[2020-05-29] MEDS: SODIUM CHLORIDE FLUSH 10ML SYR IVF SCH ×2 (09:39→21:01)
[2020-05-29] MEDS: TAMSULOSIN 0.4 MG CAP.ER.24H PO SCH ×2 (09:39→20:59)
[2020-05-29] MEDS: QUETIAPINE 25MG TABLET PO SCH ×3 (09:40→21:00)
[2020-05-29] MEDS: INSULIN GLARGINE 100 UNITS/ML, PEN SQ-INSULIN SCH ×2 (09:41→21:00)
[2020-05-29] MEDS: ACETAMINOPHEN 325 MG TABLET PO PRN (11:12)
[2020-05-29 14:02] VITALS: BP 90/58
[2020-05-29 15:55] VITALS: BP 103/65
[2020-05-29 18:40] VITALS: BP 118/72
[2020-05-30 02:04] VITALS: BP 104/64
[2020-05-30] MEDS: INSULIN LISPRO 100 UNITS/ML, PEN SQ-INSULIN SCH ×4 (07:00→21:21)
[2020-05-30 07:42] VITALS: BP 120/70
[2020-05-30] MEDS: SODIUM CHLORIDE FLUSH 10ML SYR IVF SCH ×2 (08:30→21:22)
[2020-05-30] MEDS: TAMSULOSIN 0.4 MG CAP.ER.24H PO SCH ×2 (08:30→21:21)
[2020-05-30] MEDS: QUETIAPINE 25MG TABLET PO SCH ×3 (08:30→21:21)
[2020-05-30] MEDS: INSULIN GLARGINE 100 UNITS/ML, PEN SQ-INSULIN SCH ×2 (08:31→21:20)
[2020-05-30] MEDS: LIDODERM 5% PATCH TD SCH (11:22)
[2020-05-30 15:44] VITALS: BP 106/69
[2020-05-30 19:13] VITALS: BP 119/75
[2020-05-30] MEDS: LIDODERM REMOVE PATCH NOTE XX SCH (23:00)
[2020-05-31 00:15] VITALS: BP 109/69
[2020-05-31 05:51] LABS: BASOPHILS # (AUTO) 0.06 x10^3/uL (0-0.1); BASOPHILS % (AUTO) 1 % (0-1); EOSINOPHILS # (AUTO) 0.28 x10^3/uL (0-0.4); EOSINOPHILS % (AUTO) 4 % (1-7); LYMPHOCYTES % (AUTO) 26 % (22-44); MD NO; MEAN CORPUSCULAR HEMOGLOBIN 30.3 pg (27.0-34.8); MEAN CORPUSCULAR HGB CONC 33.2 g/dL (32.4-35.8); MEAN CORPUSCULAR VOLUME 91.3 fL (80-100); MEAN PLATELET VOLUME 7.4 fL (7.4-10.4); MONOCYTES # (AUTO) 0.68 x10^3/uL (0.2-0.8); MONOCYTES % (AUTO) 9 % (2-9); NEUTROPHILS # (AUTO) 4.84 x10^3/uL (1.8-6.8); NEUTROPHILS % (AUTO) 62 % (42-75); PLATELET COUNT 581 x10^3/uL (130-400); RED BLOOD COUNT 3.13 x10^6/uL (3.82-5.3); RED CELL DISTRIBUTION WIDTH 17.5 % (9.6-15.2)
[2020-05-31 06:02] LABS: ANION GAP 7 mmol/L (5-15); CALCIUM 8.8 mg/dL (8.5-10.1); CHLORIDE 107 mmol/L (98-107); CREATININE 0.61 mg/dL (0.55-1.02)
[2020-05-31] MEDS: INSULIN LISPRO 100 UNITS/ML, PEN SQ-INSULIN SCH ×4 (07:00→21:00)
[2020-05-31 07:49] VITALS: BP 118/70
[2020-05-31] MEDS: QUETIAPINE 25MG TABLET PO SCH ×3 (09:09→20:19)
[2020-05-31] MEDS: INSULIN GLARGINE 100 UNITS/ML, PEN SQ-INSULIN SCH ×2 (09:09→21:01)
[2020-05-31] MEDS: TAMSULOSIN 0.4 MG CAP.ER.24H PO SCH ×2 (09:09→20:19)
[2020-05-31] MEDS: SODIUM CHLORIDE FLUSH 10ML SYR IVF SCH ×2 (09:10→20:20)
[2020-05-31] MEDS: LIDODERM 5% PATCH TD SCH (11:19)
[2020-05-31 12:13] VITALS: BP 90/58
[2020-05-31 20:07] VITALS: BP 106/64
[2020-05-31] MEDS: ACETAMINOPHEN 325 MG TABLET PO PRN (20:22)
[2020-05-31] MEDS: LIDODERM REMOVE PATCH NOTE XX SCH (23:00)
[2020-06-01 00:54] VITALS: BP 102/62
[2020-06-01 06:33] VITALS: BP 76/45
[2020-06-01] MEDS: INSULIN LISPRO 100 UNITS/ML, PEN SQ-INSULIN SCH ×4 (07:00→21:10)
[2020-06-01 07:24] VITALS: BP 96/57
[2020-06-01] MEDS: TAMSULOSIN 0.4 MG CAP.ER.24H PO SCH ×2 (09:23→20:58)
[2020-06-01] MEDS: QUETIAPINE 25MG TABLET PO SCH ×3 (09:23→20:58)
[2020-06-01] MEDS: INSULIN GLARGINE 100 UNITS/ML, PEN SQ-INSULIN SCH ×2 (09:23→21:11)
[2020-06-01] MEDS: SODIUM CHLORIDE FLUSH 10ML SYR IVF SCH ×2 (09:24→21:11)
[2020-06-01] MEDS: LIDODERM 5% PATCH TD SCH (11:20)
[2020-06-01 12:31] VITALS: BP 121/81
[2020-06-01] MEDS ORDERED: LACTATED RINGERS 1,000 ML IV SCH (13:30)
[2020-06-01 19:39] VITALS: BP 131/75
[2020-06-01] MEDS: ACETAMINOPHEN 325 MG TABLET PO PRN (21:10)
[2020-06-01] MEDS: LIDODERM REMOVE PATCH NOTE XX SCH (23:00)
[2020-06-02 02:11] VITALS: BP 112/70
[2020-06-02 05:07] LABS: BASOPHILS # (AUTO) 0.07 x10^3/uL (0-0.1); BASOPHILS % (AUTO) 1 % (0-1); EOSINOPHILS # (AUTO) 0.29 x10^3/uL (0-0.4); EOSINOPHILS % (AUTO) 3 % (1-7); LYMPHOCYTES # (AUTO) 2.14 x10^3/uL (1-3.4); LYMPHOCYTES % (AUTO) 25 % (22-44); MD NO; MEAN CORPUSCULAR HEMOGLOBIN 29.6 pg (27.0-34.8); MEAN CORPUSCULAR HGB CONC 32.2 g/dL (32.4-35.8); MEAN CORPUSCULAR VOLUME 91.9 fL (80-100); MEAN PLATELET VOLUME 7.4 fL (7.4-10.4); MONOCYTES # (AUTO) 0.61 x10^3/uL (0.2-0.8); MONOCYTES % (AUTO) 7 % (2-9); NEUTROPHILS # (AUTO) 5.62 x10^3/uL (1.8-6.8); NEUTROPHILS % (AUTO) 64 % (42-75); PLATELET COUNT 557 x10^3/uL (130-400); RED BLOOD COUNT 3.05 x10^6/uL (3.82-5.3); RED CELL DISTRIBUTION WIDTH 17.6 % (9.6-15.2)
[2020-06-02 05:17] LABS: ANION GAP 8 mmol/L (5-15); CALCIUM 9.1 mg/dL (8.5-10.1); CHLORIDE 107 mmol/L (98-107); CREATININE 0.64 mg/dL (0.55-1.02)
[2020-06-02 07:54] VITALS: BP 134/79
[2020-06-02] MEDS: INSULIN LISPRO 100 UNITS/ML, PEN SQ-INSULIN SCH ×4 (08:34→20:20)
[2020-06-02] MEDS: TAMSULOSIN 0.4 MG CAP.ER.24H PO SCH ×2 (08:35→20:18)
[2020-06-02] MEDS: QUETIAPINE 25MG TABLET PO SCH ×3 (08:35→20:18)
[2020-06-02] MEDS: INSULIN GLARGINE 100 UNITS/ML, PEN SQ-INSULIN SCH ×3 (08:35→20:20)
[2020-06-02] MEDS: SODIUM CHLORIDE FLUSH 10ML SYR IVF SCH ×2 (08:36→20:22)
[2020-06-02] MEDS: LIDODERM 5% PATCH TD SCH (11:33)
[2020-06-02 13:03] VITALS: BP 115/70
[2020-06-02 20:07] VITALS: BP 118/74
[2020-06-02] MEDS: LIDODERM REMOVE PATCH NOTE XX SCH (23:19)
[2020-06-03 01:47] VITALS: BP 116/72
[2020-06-03 05:05] LABS: BASOPHILS # (AUTO) 0.06 x10^3/uL (0-0.1); BASOPHILS % (AUTO) 1 % (0-1); EOSINOPHILS # (AUTO) 0.31 x10^3/uL (0-0.4); EOSINOPHILS % (AUTO) 3 % (1-7); LYMPHOCYTES % (AUTO) 23 % (22-44); MD NO; MEAN CORPUSCULAR HEMOGLOBIN 29.3 pg (27.0-34.8); MEAN CORPUSCULAR HGB CONC 32.5 g/dL (32.4-35.8); MEAN CORPUSCULAR VOLUME 90.2 fL (80-100); MEAN PLATELET VOLUME 7.3 fL (7.4-10.4); MONOCYTES # (AUTO) 0.69 x10^3/uL (0.2-0.8); MONOCYTES % (AUTO) 8 % (2-9); NEUTROPHILS # (AUTO) 5.89 x10^3/uL (1.8-6.8); NEUTROPHILS % (AUTO) 65 % (42-75); PLATELET COUNT 521 x10^3/uL (130-400); RED BLOOD COUNT 3.39 x10^6/uL (3.82-5.3); RED CELL DISTRIBUTION WIDTH 17.9 % (9.6-15.2)
[2020-06-03] MEDS: INSULIN LISPRO 100 UNITS/ML, PEN SQ-INSULIN SCH ×4 (07:00→20:33)
[2020-06-03 08:00] VITALS: BP 93/61
[2020-06-03] MEDS: TAMSULOSIN 0.4 MG CAP.ER.24H PO SCH ×2 (09:47→20:32)
[2020-06-03] MEDS: SODIUM CHLORIDE FLUSH 10ML SYR IVF SCH ×2 (09:47→20:31)
[2020-06-03] MEDS: QUETIAPINE 25MG TABLET PO SCH ×3 (09:47→20:32)
[2020-06-03] MEDS: INSULIN GLARGINE 100 UNITS/ML, PEN SQ-INSULIN SCH ×2 (09:48→20:33)
[2020-06-03] MEDS: LIDODERM 5% PATCH TD SCH (11:41)
[2020-06-03 12:46] VITALS: BP 92/60
[2020-06-03 18:57] VITALS: BP 121/73
[2020-06-03] MEDS: LIDODERM REMOVE PATCH NOTE XX SCH (23:16)
[2020-06-04 00:48] VITALS: BP 112/64
[2020-06-04] MEDS: INSULIN LISPRO 100 UNITS/ML, PEN SQ-INSULIN SCH ×4 (07:00→20:54)
[2020-06-04 07:47] VITALS: BP 111/72
[2020-06-04] MEDS: SODIUM CHLORIDE FLUSH 10ML SYR IVF SCH ×2 (09:00→20:44)
[2020-06-04] MEDS: TAMSULOSIN 0.4 MG CAP.ER.24H PO SCH ×2 (09:49→20:43)
[2020-06-04] MEDS: QUETIAPINE 25MG TABLET PO SCH ×3 (09:49→20:43)
[2020-06-04] MEDS: INSULIN GLARGINE 100 UNITS/ML, PEN SQ-INSULIN SCH ×2 (09:50→20:55)
[2020-06-04] MEDS: LIDODERM 5% PATCH TD SCH (12:43)
[2020-06-04 13:32] VITALS: BP 102/56
[2020-06-04 19:42] VITALS: BP 89/53
[2020-06-04] MEDS: LIDODERM REMOVE PATCH NOTE XX SCH (23:00)
[2020-06-05 01:30] VITALS: BP 100/63
[2020-06-05 07:29] VITALS: BP 104/69
[2020-06-05] MEDS: INSULIN LISPRO 100 UNITS/ML, PEN SQ-INSULIN SCH ×4 (08:16→22:05)
[2020-06-05] MEDS: SODIUM CHLORIDE FLUSH 10ML SYR IVF SCH ×2 (09:00→21:00)
[2020-06-05] MEDS: QUETIAPINE 25MG TABLET PO SCH ×3 (09:19→22:04)
[2020-06-05] MEDS: TAMSULOSIN 0.4 MG CAP.ER.24H PO SCH ×2 (09:19→22:03)
[2020-06-05] MEDS: INSULIN GLARGINE 100 UNITS/ML, PEN SQ-INSULIN SCH (09:20)
[2020-06-05] MEDS: LIDODERM 5% PATCH TD SCH (11:31)
[2020-06-05 13:23] VITALS: BP 120/74
[2020-06-05 18:35] VITALS: BP 115/69
[2020-06-05] MEDS ORDERED: INSULIN GLARGINE 100 UNITS/ML, PEN SQ-INSULIN SCH (21:00)
[2020-06-05] MEDS: LIDODERM REMOVE PATCH NOTE XX SCH (23:30)
[2020-06-06 01:00] VITALS: BP 101/66
[2020-06-06 07:30] VITALS: BP 94/59
[2020-06-06] MEDS: QUETIAPINE 25MG TABLET PO SCH ×2 (07:51→17:27)
[2020-06-06] MEDS: TAMSULOSIN 0.4 MG CAP.ER.24H PO SCH (07:51)
[2020-06-06] MEDS: SODIUM CHLORIDE FLUSH 10ML SYR IVF SCH (07:52)
[2020-06-06] MEDS: INSULIN LISPRO 100 UNITS/ML, PEN SQ-INSULIN SCH ×3 (07:53→17:26)
[2020-06-06] MEDS ORDERED: INSULIN GLARGINE 100 UNITS/ML, PEN SQ-INSULIN SCH (09:00)
[2020-06-06] MEDS: LIDODERM 5% PATCH TD SCH (11:00)
[2020-06-06] MEDS ORDERED: INSU100I11 SQ-INSULIN (13:35)
[2020-06-06] MEDS ORDERED: TAMS-11 PO (13:35)
[2020-06-06] MEDS ORDERED: INSU100I13 SQ-INSULIN ×2 (13:35)
[2020-06-06 13:40] VITALS: BP 97/62
== END 2020-06-06 20:11 | disposition home or self-care (01) | DRG 720 ==
LOC: ED 21:57 → INTOOBSV 22:53 → EDIP 22:53 → 3N 22:59 → OBSVTOIN 04-07 11:48 → 4NW 04-08 18:08 → ICU 04-10 13:50 → 4NW 04-27 22:43 → ICU 04-29 05:57 → 4EST 05-10 12:00 → 3N 05-12 20:10
PROVIDERS: ADMIT Internal Medicine; ATTEND Internal Medicine
PROC: 0BH17EZ Insertion of Endotracheal Airway into Trachea, Via Natural or Artificial Opening (ICD-10-PCS; 2020-04-10)
PROC: 5A1955Z Respiratory Ventilation, Greater than 96 Consecutive Hours (ICD-10-PCS; 2020-04-10)
PROC: 30233K1 Transfusion of Nonautologous Frozen Plasma into Peripheral Vein, Percutaneous Approach (ICD-10-PCS; 2020-04-13)
PROC: 02HV33Z Insertion of Infusion Device into Superior Vena Cava, Percutaneous Approach (ICD-10-PCS; principal; 2020-05-01)
PROC: B548ZZA Ultrasonography of Superior Vena Cava, Guidance (ICD-10-PCS; 2020-05-01)
PROC: 30233N1 Transfusion of Nonautologous Red Blood Cells into Peripheral Vein, Percutaneous Approach (ICD-10-PCS; 2020-05-01)
DX: A41.59 Other Gram-negative sepsis (principal); U07.1 COVID-19; J12.89 Other viral pneumonia; R65.21 Severe sepsis with septic shock; R53.2 Functional quadriplegia; B96.20 Unspecified Escherichia coli [E. coli] as the cause of diseases classified elsewhere; D63.8 Anemia in other chronic diseases classified elsewhere; D62 Acute posthemorrhagic anemia; E11.649 Type 2 diabetes mellitus with hypoglycemia without coma; E43 Unspecified severe protein-calorie malnutrition; E11.65 Type 2 diabetes mellitus with hyperglycemia; E87.0 Hyperosmolality and hypernatremia; E86.9 Volume depletion, unspecified; Y95 Nosocomial condition; Z16.11 Resistance to penicillins; S30.1XXA Contusion of abdominal wall, initial encounter; S40.022A Contusion of left upper arm, initial encounter; N17.0 Acute kidney failure with tubular necrosis; K66.1 Hemoperitoneum; R13.10 Dysphagia, unspecified; J96.01 Acute respiratory failure with hypoxia; J93.9 Pneumothorax, unspecified; J98.2 Interstitial emphysema; J15.0 Pneumonia due to Klebsiella pneumoniae; I82.622 Acute embolism and thrombosis of deep veins of left upper extremity; G93.41 Metabolic encephalopathy; F41.9 Anxiety disorder, unspecified; E87.4 Mixed disorder of acid-base balance; E87.1 Hypo-osmolality and hyponatremia; E87.5 Hyperkalemia; E87.6 Hypokalemia; K59.00 Constipation, unspecified; Z79.4 Long term (current) use of insulin; Z91.81 History of falling; Z99.11 Dependence on respirator [ventilator] status
CPT/HCPCS: 36415; 36573; 36600; 70450; 71045; 72158; 74018; 74176; 74230; 76700; 80048; 80053; 81001; 82010; 82140; 82533; 82570; 82728; 82803; 82947; 82962; 83036; 83050; 83605; 83615; 83690; 83735; 83880; 83930; 84100; 84145; 84156; 84300; 84443; 84478; 84484; 85014; 85018; 85025; 85379; 85610; 85651; 86140; 86738; 86850; 86900; 86923; 87040; 87070; 87077; 87081; 87086; 87106; 87186; 87205; 87449; 87635; 93005; 93306; 94002; 94003; 94150; 94640; 96360; 96361; 99285; G0378; J0295; J0456; J0696; J1650; J1940; J2185; J2250; J2405; J2543; J2704; J3010; J3370; J3480; P9047; A9575; C1751; J0330; J1120; J1815; J2920; J3262; J3475; J3490; J7030; J7040; J7050; J7120; J7512; P9016; P9017